=== PATIENT | male | born 1970 | race Caucasian/White ===

== ENCOUNTER 2017-02-28 17:27 | Emergency (ER) | payer BC ==
[~2017-02-28 17:27] MED LIST: NEXIUM
[2017-02-28 17:30] VITALS: TEMP 36.4
[2017-02-28 18:33] LABS: BASO % 0.3 %; BASO ABS # 0.02 K/uL (0-0.2); COMPLETE YES; EOS % 1.1 %; HEMATOCRIT 48.7 % (42-52); IG% 0.1 %; LYMPH % 28.1 %; MEAN CELL VOLUME 89.9 fL (80-100); MEAN CORPUSCULAR HEMOGLOBIN 30.8 pg (25-34); MEAN CORPUSCULAR HGB CONC 34.3 g/dl (32-36); MEAN PLATELET VOLUME 10.4 fL (7.4-10.4); MONO % 4.2 %; NEUT % 66.2 %; PLATELET COUNT 182 K/uL (130-400); RED BLOOD COUNT 5.42 M/uL (4.7-6.1); WHITE BLOOD COUNT 7.84 K/uL (4.8-10.8)
[2017-02-28] MEDS ORDERED: SODIUM CHLORIDE 0.9% 1000ML 1,000 ML IV STA (18:33)
[2017-02-28] MEDS ORDERED: KETOROLAC TROMETHAMINE 30 MG/ML VIAL IV STA (18:33)
--- NOTE | 2017-02-28 18:51 | DIAGNOSTIC IMAGING REPORT ---
CHEST ONE VIEW PORTABLE HISTORY: Atypical Chest Pain COMPARISON: None. FINDINGS: The lungs are clear. Cardiac silhouette is normal in size. No pleural effusions. No pneumothorax. IMPRESSION: No acute process. Electronically signed by: Scooter Qureshi M.D. 02/28/2017 6:49 PM Dictated Date/Time: 02/28/2017 6:48 PM
[2017-02-28 18:55] LABS: BLOOD UREA NITROGEN 13 mg/dl (7-18); BUN/CREATININE RATIO 13.3 (10-20); CARBON DIOXIDE 32 mmol/L (21-32); CHLORIDE 105 mmol/L (98-107); CREATININE 0.98 mg/dl (0.60-1.40); GLUCOSE 115 mg/dl (70-99); SODIUM 141 mmol/L (136-145)
[2017-02-28 18:56] LABS: CKMB/CK RATIO 0.9 (0-3.0)
[2017-02-28 20:49] VITALS: BP 151/90; PULSE 70; O2SAT 99
--- NOTE | 2017-03-01 00:11 | EMERGENCY ROOM VISIT NOTE ---
History Report prepared by Rocío: Ian Moses Under the Supervision of: Dr. Haroon Mancera D.O. First contact with patient: 17:50 Chief Complaint: CHEST PAIN Stated Complaint: PAINS IN THE CHEST AND NECK History of Present Illness The patient is a 46 year old male who presents to the Emergency Room with complaints of constant left sided neck pain that the patient has been experiencing for the past 2-3 weeks. The patient states that the discomfort in his neck is worsened with range of motion of the neck and strenuous activity. One week ago the patient also started to experience some waxing and waning left sided chest pain. This pain is also worsened with strenuous activity. He does think that it worsens when he turns his head as well. The patient denies any shortness of breath, diaphoresis, or nausea. He does not have any personal history of cardiac disease, hypertension, or hyperlipemia, but does have a family history of cardiac illness. He denies headache, change in vision, fevers , diarrhea, pain with urination, and melena. Patient denies any swelling of his calves, recent trips, recent surgeries, hemoptysis, history of cancer or smoking, and no blood clots Source of History: patient Onset: 2-3 weeks NO EXPERIENCE Position: neck, chest (left) Timing: constant Modifying Factors (Worsening): exertion Associated Symptoms: No SOB, No diaphoresis Review of Systems See HPI for pertinent positives & negatives. A total of 10 systems reviewed and were otherwise negative. Past Medical & Surgical NO significant history. Family History FH: heart disease Social History Smoking Status: Never Smoker Marital Status: Housing Status: lives with family Occupation Status: employed Current/Historical Medications No Active Prescriptions or Reported Meds Allergies Coded Allergies: No Known Allergies (Unverified , 02/28/17) Physical Exam Vital Signs Date Time Temp Pulse Resp B/P Pulse Ox O2 Delivery O2 Flow Rate FiO2 02/28/17 20:49 70 18 151/90 99 02/28/17 18:59 68 18 167/98 97 02/28/17 18:23 62 02/28/17 17:45 97 Room Air 02/28/17 17:30 36.4 62 20 140/84 97 Room Air Physical Exam GENERAL: Standing in room. alert, well appearing, well nourished, no distress, non-toxic EYE EXAM: normal conjunctiva OROPHARYNX: no exudate, no erythema, lips, buccal mucosa, and tongue normal and mucous membranes are moist NECK: supple, no nuchal rigidity, no adenopathy. There is reproducible discomfort with turning of the neck to the left beyond 45 degrees and upon palpation. The pain is in the upper cervical area tracking down into the upper trapezius. LUNGS: Clear to auscultation. Normal chest wall mechanics CHEST: Questionable reproducible tenderness along the left chest wall. HEART: no murmurs, S1 normal and S2 normal ABDOMEN: abdomen soft, non-tender, normo-active bowel sounds, no masses, no rebound or guarding. BACK: Back is symmetrical on inspection and there is no deformity, no midline tenderness, no CVA tenderness. SKIN: no rashes and no bruising UPPER EXTREMITIES: upper extremities are grossly normal. Radial pulses are equal bilateral LOWER EXTREMITIES: No pitting edema. NEURO EXAM: Normal sensorium, cranial nerves II-XII grossly intact, normal speech, no gross weakness of arms, no gross weakness of legs. Medical Decision & Procedures ER Provider Diagnostic Interpretation: Radiology results as stated below per my review and the radiologist's interpretation: CHEST ONE VIEW PORTABLE HISTORY: Atypical Chest Pain COMPARISON: None. FINDINGS: The lungs are clear. Cardiac silhouette is normal in size. No pleural effusions. No pneumothorax. IMPRESSION: No acute process. Electronically signed by: Scooter Qureshi M.D. 02/28/2017 6:49 PM Dictated Date/Time: 02/28/2017 6:48 PM Laboratory Results 02/28/17 18:20 Red Blood Count 5.42, Mean Corpuscular Volume 89.9, Mean Corpuscular Hemoglobin 30.8, Mean Corpuscular Hemoglobin Concent 34.3, Mean Platelet Volume 10.4, Neutrophils (%) (Auto) 66.2, Lymphocytes (%) (Auto) 28.1, Monocytes (%) (Auto) 4.2, Eosinophils (%) (Auto) 1.1, Basophils (%) (Auto) 0.3, Neutrophils # (Auto) 5.19, Lymphocytes # (Auto) 2.20, Monocytes # (Auto) 0.33, Eosinophils # (Auto) 0.09, Basophils # (Auto) 0.02 02/28/17 18:20 Test 02/28/17 18:20 02/28/17 20:22 White Blood Count 7.84 K/uL (4.8-10.8) Red Blood Count 5.42 M/uL (4.7-6.1) Hemoglobin 16.7 g/dL (14.0-18.0) Hematocrit 48.7 % (42-52) Mean Corpuscular Volume 89.9 fL (80-100) Mean Corpuscular Hemoglobin 30.8 pg (25-34) Mean Corpuscular Hemoglobin Concent 34.3 g/dl (32-36) Platelet Count 182 K/uL (130-400) Mean Platelet Volume 10.4 fL (7.4-10.4) Neutrophils (%) (Auto) 66.2 % Lymphocytes (%) (Auto) 28.1 % Monocytes (%) (Auto) 4.2 % Eosinophils (%) (Auto) 1.1 % Basophils (%) (Auto) 0.3 % Neutrophils # (Auto) 5.19 K/uL (1.4-6.5) Lymphocytes # (Auto) 2.20 K/uL (1.2-3.4) Monocytes # (Auto) 0.33 K/uL (0.11-0.59) Eosinophils # (Auto) 0.09 K/uL (0-0.5) Basophils # (Auto) 0.02 K/uL (0-0.2) RDW Standard Deviation 48.9 fL (36.4-46.3) RDW Coefficient of Variation 14.6 % (11.5-14.5) Immature Granulocyte % (Auto) 0.1 % Immature Granulocyte # (Auto) 0.01 K/uL (0.00-0.02) Anion Gap 4.0 mmol/L (3-11) Estimated GFR () 107.5 Estimated GFR (Non- 92.7 BUN/Creatinine Ratio 13.3 (10-20) Calcium Level 9.0 mg/dl (8.5-10.1) Total Creatine Kinase 174 U/L (39-308) Creatine Kinase MB 1.5 ng/ml (0.5-3.6) Creatine Kinase MB Ratio 0.9 (0-3.0) Chemistry Specimen Hemolysis Troponin I < 0.015 ng/ml (0-0.045) Laboratory results per my review. Medications Administered Medications (Trade) Dose Ordered Sig/Tegan Route Start Time Stop Time Status Last Admin Dose Admin Sodium Chloride (Nss 1000ml) 1,000 ml @ 999 mls/hr Q1H1M STAT IV 02/28/17 18:33 02/28/17 19:33 DC 02/28/17 18:59 999 MLS/HR Ketorolac Tromethamine (Toradol Inj) 30 mg NOW STAT IV 02/28/17 18:33 02/28/17 18:34 DC 02/28/17 18:59 30 MG ECG Indication: chest pain Rate (beats per minute): 65 Rhythm: normal sinus Findings: peaked T-waves (V2), other (Normal Nettie) Comparison ECG Date: no prior available ED Course ED COURSE: Vital signs were reviewed and showed normal vitals. The patients medical record was reviewed. Patient had no previous visits to the emergency department. The above diagnostic studies were performed and reviewed. ED treatments and interventions as stated above. 1752: The patient was evaluated in room A3. A complete history and physical examination was performed. 1832: Ordered Toradol 30 mg IV, Sodium Chloride 1000 mL @ 999 mL/hr IV. 1934: I checked on the patient at this time. He is feeling much better. He is ready to go home, but is agreeable to stay for repeat troponin. His last pain was 3-4 hours ago. 1952: Upon reevaluation, the patient is feeling well.I discussed my findings with the patient and he understands and agrees with the treatment plan. Based on the patients age, coexisting illnesses, exam and lab findings the decision to treat as an outpatient was made. The patient remained stable while under my care. The patient appeared well at the time of discharge. Medical Decision Differential diagnoses includes but is not limited to acute coronary syndrome, myocardial infarction, pericarditis, pulmonary embolus, aortic dissection, pneumonia, pneumothorax, musculoskeletal, shingles, esophageal. Patient is a 46-year-old male who presents the ER for left-sided neck pain associated with left upper chest pain. The left neck pain has been present for the past 2-3 weeks and he notes it is worse with rotation or movement of his head. It's along the left paraspinal region. He denies any trauma. He is neurologically intact. No weakness or numbness of his arms or legs. Upon palpation it is reproducible and consequently I do believe it to be muscle skeletal. Troponin along with chest x-ray and EKG were unremarkable. He notes that the chest pain has been present for the past 2 days. He consistently. I did recommend a repeat troponin and he preferred to leave and I was able to talk him into obtaining it and calling him with the results if positive. He was eventually agreeable to this. He did leave prior to the results of the troponin. I explained to him with 2 negative troponins as presentation his risk for a cardiac event is less than 2% as he is a low risk per the heart score. Discussed with Pt concerning signs and symptoms to watch out for. Pt was instructed to follow up with their PCP and discussed with the patient their option to return to the ED at anytime for persistent or worsening symptoms. The appropriate anticipatory guidance and out-patient management, including indications for return to the emergency department, were explained at length to the patient and understood. Impression Primary Impression: Neck muscle strain Additional Impression: Precordial chest pain Scribe Attestation The scribe's documentation has been prepared under my direction and personally reviewed by me in its entirety. I confirm that the note above accurately reflects all work, treatment, procedures, and medical decision making performed by me. Departure Information Dispostion Home / Self-Care Prescriptions No Active Prescriptions or Reported Meds Referrals No Doctor, Assigned (PCP) Forms HOME CARE DOCUMENTATION FORM, IMPORTANT VISIT INFORMATION Patient Instructions [facility] Additional Instructions Please follow up with your primary care doctor with in the next 24 hours. Any worsening of your symptoms, please return to the ED immediately. This includes new or worsening chest pain, shortness of breath, passing out, weakness in arms or legs or any other concerning signs or symptoms from your standpoint. Please take Motrin or Tylenol as needed for pain. Problem Qualifiers Primary Impression: Neck muscle strain Encounter type: initial encounter Qualified Codes: S16.1XXA - Strain of muscle, fascia and tendon at neck level, initial encounter
== END 2017-02-28 20:50 | disposition home or self-care (01) ==
LOC: C.EDB 17:28 → C.EDA 20:50
DX: S16.1XXA Strain of muscle, fascia and tendon at neck level, initial encounter (principal); R07.2 Precordial pain; X58.XXXA Exposure to other specified factors, initial encounter; Z82.49 Family history of ischemic heart disease and other diseases of the circulatory system

== ENCOUNTER → 2018-01-12 | Outpatient (CLI) | payer OTHER | END | disposition home or self-care (01) | LOC: C.PATHSPEC 16:40 | PROVIDERS: ATTEND Urology | DX: N41.9 Inflammatory disease of prostate, unspecified (principal) ==

== ENCOUNTER → 2018-01-13 | Outpatient (CLI) | payer OTHER ==
[2018-01-13 12:20] LABS: HEMATOCRIT 48.6 % (42-52); HEMOGLOBIN 16.4 g/dL (14.0-18.0); MEAN CELL VOLUME 88.4 fL (80-100); MEAN CORPUSCULAR HEMOGLOBIN 29.8 pg (25-34); MEAN CORPUSCULAR HGB CONC 33.7 g/dl (32-36); MEAN PLATELET VOLUME 10.7 fL (7.4-10.4); PLATELET COUNT 197 K/uL (130-400); RED CELL DISTRIBUTION WIDTH CV 14.1 % (11.5-14.5)
[2018-01-13 13:29] LABS: BLOOD UREA NITROGEN 14 mg/dl (7-18); CALCIUM 9.2 mg/dl (8.5-10.1); CARBON DIOXIDE 29 mmol/L (21-32); CREATININE 1.08 mg/dl (0.60-1.40); GLUCOSE 101 mg/dl (70-99); POTASSIUM 3.9 mmol/L (3.5-5.1); SODIUM 137 mmol/L (136-145)
== END | disposition home or self-care (01) ==
LOC: C.LAB1850 10:42
PROVIDERS: ATTEND Urology
DX: N41.9 Inflammatory disease of prostate, unspecified (principal)

== ENCOUNTER → 2018-03-10 | Outpatient (CLI) | payer OTHER | END | disposition home or self-care (01) | LOC: C.LABSPEC 17:03 | PROVIDERS: ATTEND Urology | DX: N34.2 Other urethritis (principal) ==

== ENCOUNTER → 2018-03-14 | Outpatient (CLI) | payer OTHER | END | disposition home or self-care (01) | LOC: C.LAB1850 10:13 | PROVIDERS: ATTEND Urology | DX: N34.2 Other urethritis (principal) ==

== ENCOUNTER 2019-12-05 10:45 | Inpatient (IN) ==
[2019-12-05] MEDS ORDERED: KETOROLAC TROMETHAMINE 15 MG/ML VIAL IV STA ×2 (11:14→12:39)
[2019-12-05] MEDS ORDERED: SODIUM CHLORIDE 0.9% 1000ML 1,000 ML IV ONE (11:14)
[2019-12-05 12:05] LABS: Appearance Urine Clear (Clear); Bacteria Urine Automated Negative (Negative); Bilirubin Urine Negative (Negative); Blood Urine 2+ (Negative); Color Urine Yellow; Glucose Urine UA Negative (Negative); Ketones Urine Negative (Negative); Leukocyte Esterase Urine Negative (Negative); Nitrite Urine Negative (Negative); Protein Urine Negative (Negative); RBC Urine Automated >30 /hpf (0-4); Specific Gravity Urine 1.015 (1.000-1.030); Urobilinogen Urine Negative (Negative); pH Urine 8.5 (4.5-7.5)
[2019-12-05 12:06] LABS: Basophils # (auto) 0.01 K/uL (0-0.2); Basophils % (auto) 0.1 %; Eosinophils # (auto) 0.02 K/uL (0-0.5); Eosinophils % (auto) 0.1 %; Hematocrit (blood only) 50.6 % (42-52); Hemoglobin 17.2 g/dL (14.0-18.0); Immature Granulocytes # (auto) 0.03 K/uL (0.00-0.02); Immature Granulocytes % (auto) 0.2 %; Lymphocytes # (auto) 1.13 K/uL (1.2-3.4); Lymphocytes % (auto) 7.7 %; Mean Corpuscular Hemoglobin 30.5 pg (25-34); Mean Corpuscular Volume 89.7 fL (80-100); Mean Platelet Volume 10.8 fL (7.4-10.4); Monocytes % (auto) 2.7 %; Neutrophils # (auto) 13.17 K/uL (1.4-6.5); Neutrophils % (auto) 89.2 %; Platelet Count 181 K/uL (130-400); RDW Coefficient of Variation 14.3 % (11.5-14.5); RDW Standard Deviation 46.8 fL (36.4-46.3); Red Blood Count 5.64 M/uL (4.7-6.1); White Blood Count 14.76 K/uL (4.8-10.8)
[2019-12-05 12:18] LABS: Partial Thromboplastin Ratio 0.9; Partial Thromboplastin Time 25.5 Seconds (21.0-31.0); Prothrombin Time 10.5 Seconds (9.0-12.0)
[2019-12-05 12:20] LABS: Alanine Aminotransferase 57 U/L (12-78); Albumin Level 4.5 gm/dl (3.4-5.0); Aspartate Aminotransferase 30 U/L (15-37); BUN Creatinine Ratio 11.6 (10-20); Blood Urea Nitrogen 13 mg/dl (7-18); Calcium 9.6 mg/dl (8.5-10.1); Carbon Dioxide 28 mmol/L (21-32); Chloride 106 mmol/L (98-107); Creatinine Clr Calc Pharmacy 83.3 ml/min; Est GFR (African American) 86.7; Est GFR (Non-African American) 74.8; Glucose 109 mg/dl (70-99); Lipase 152 U/L (73-393); Potassium 4.5 mmol/L (3.5-5.1); Sodium 139 mmol/L (136-145)
[2019-12-05 12:22] LABS: Alkaline Phosphatase 106 U/L (45-117); Bilirubin Direct < 0.1 mg/dl (0-0.2); Bilirubin,Total 0.4 mg/dl (0.2-1); Total Protein 8.2 gm/dl (6.4-8.2)
[2019-12-05] MEDS ORDERED: IOVERSOL 100ml IV PRN (12:37)
--- NOTE | 2019-12-05 12:48 | CT Scan Report ---
CT OF THE ABDOMEN AND PELVIS WITH CONTRAST CLINICAL HISTORY: Left lower quadrant pain. Evaluate for acute diverticulitis. COMPARISON STUDY: CT of the abdomen and pelvis December 03, 2014. TECHNIQUE: Following IV administration of 95 mL of Optiray-320, axial images of the abdomen and pelvi s were obtained from the lung bases to the proximal femurs. Images were reviewed in the axial, sagitt al, and coronal planes. IV contrast was administered without complication. Automated exposure contro l was utilized for the study. A dose lowering technique was utilized adhering to the principles of A JENNIFER. CT DOSE: 375.41 mGy.cm FINDINGS: A 5 mm x 4 mm proximal left ureteral calculus results in mild hydronephrosis with moderate perinephric infiltration. There is a 2 mm calculus within the upper pole of the left kidney. Left nep hrogram is delayed. There are no right ureteral calculi. The liver, spleen, adrenal glands and pancre as are normal. There is no evidence for a bowel obstruction. This colonic diverticulosis without evid ence for acute diverticulitis. The appendix is normal. There is no lymphadenopathy. There are no susp icious osseous lesions. No biliary or pancreatic ductal dilatation is noted. IMPRESSION: 1. 5 mm x 4 mm proximal left ureteral calculus results in mild hydronephrosis with moderate perinephr ic infiltration. 2. 2 mm left renal calculus. 3. Mild colonic diverticulosis without evidence for acute diverticulitis. ACT 112: Negative or not required by law. Electronically signed by: Moise Savage M.D. 12/05/2019 12:46 PM
[2019-12-05] MEDS ORDERED: cefTRIAXone SODIUM 1,000 MG/50 ML BAG IV STA (13:36)
--- NOTE | 2019-12-05 15:07 | History & Physical Report ---
Date of Service December 05, 2019 Assessment & Plan (1) Ureteral calculi: 49yo male with no significant past medical/surgical history presenting with 5mm x 4mm proximal left ureteral calculus with mild hydronephrosis and perinephric infiltration. Patient afebrile, hemodynamically stable, non-toxic in appearance. UA does not suggest infection. -Admit to medical floor -IVF - LR at 125mL/hr x 2 liters -Toradol 15mg IV q 6 hours as needed for pain. Patient does not wish to receive narcotic pain medication -Tylenol as needed for pain -Zofran as needed for nausea -Ceftriaxone 1gm IV daily -Flomax 0.4mg po q daily -Strain all urine -Urology consultation appreciated -Will keep patient NPO after midnight for possible intervention in AM Present on Admission?: Yes (2) Elevated blood pressure reading: Patient with elevated blood pressure readings in setting of acute pain and distress. Voiced some concern over numbers. -Continue to monitor -Patient wishes to establish care with a PCP F/E/N - LR at 12mL/hr x 2 liters, electrolytes and renal function WNL, regular diet as tolerated, NPO after midnight Ppx - low risk for DVT Code - Full per discussion with patient Dispo - Admit to medical floor Present on Admission?: Yes History of Present Illness Chief Complaint: Left flank, lower abdominal pain Primary Care Provider: NO PCP Dangelo Ellsworth is a 49yo male with no significant past medical or surgical history. He developed left sided flank pain on 12/03/19 which was self-limiting, also passed some dark colored urine. He is uncertain if there was blood in the urine. Pain did not reoccur until this AM. When he woke up he was unable to get out of bed due to pain. Pain in LLQ and flank, severe, associated with some nausea. He denies fever/chills/back pain/dysuria. No additional complaints at this time. ER Course: Ceftriaxone, Toradol Allergies Allergy/AdvReac Type Severity Reaction Status Date / Time No Known Allergies Allergy Unverified 12/05/19 12:09 Home Medications Home Medications Medication Instructions Recorded Confirmed Type No Known Home Medications 12/05/19 12/05/19 History Past Med/Surg History Medical History (Updated 12/05/19 @ 15:00 by June Barrera DO) No significant past medical history Surgical History (Updated 12/05/19 @ 14:57 by June Barrera DO) History of tonsillectomy Family History (Updated 12/05/19 @ 14:57 by June Barrera DO) Other Heart disease Hypertension Social History (Updated 12/05/19 @ 14:57 by June Barrera DO) Preferred Language: German Communication Ability: Effective Boiler Attendant Required: No Beliefs That Will Affect Care: None Current Living Situation: Spouse Other Information That Helps Us Care for You: No Feels Safe at Home: Yes Safety Concerns: Feels Safe At This Time Smoking Status: Never smoker Hx Alcohol Use: Yes Hx Substance Use: No Review of Systems Review of Systems: All systems reviewed & are unremarkable except as noted in HPI & below Physical Exam Physical Exam: General: patient uncomfortable, NAD, non-toxic in appearance, AA&O x 4 Skin: warm, dry, intact, no rashes or lesions HEENT: NC/AT, PERRL, EOMI, anicteric sclera, conjunctiva without injection, external ear normal to inspection and nontender, nares patent, moist mucus membranes, dentition intact, no oropharyngeal lesions, neck supple, trachea midline, no LAD, no thyromegaly, no JVD Heart: +S1/S2, regular, no m/r/g Lungs: equal air entry bilaterally, no rales/rhonchi/wheezes Abd: +BS, soft, ND, tender in LLQ, no rebound/guarding/peritoneal signs, no masses/organomegaly/ascites Ext: warm, 2+ pulses in UE/LE bilaterally, no clubbing/cyanosis or edema Neuro: nonfocal, patient AA&O x 4, speech intact, no facial droop, moving all extremities on command with equal strength 5/5 Results & Data Vital Signs (Past 12 Hours) Vital Signs Temp Pulse Resp BP Pulse Ox 12/05/19 13:25 63 24 140/84 97 12/05/19 13:00 72 15 154/98 H 100 12/05/19 12:42 72 17 173/97 H 98 12/05/19 12:00 64 24 140/94 12/05/19 11:59 64 27 H 141/93 H 12/05/19 11:43 69 22 154/103 H 99 12/05/19 10:49 36.5 C 68 16 164/107 H 98 Laboratory Results Lab Results 12/05/19 12/05/19 12/05/19 Range/Units 11:33 11:45 11:45 WBC 14.76 H (4.8-10.8) K/uL RBC 5.64 (4.7-6.1) M/uL Hgb 17.2 (14.0-18.0) g/dL Hct 50.6 (42-52) % MCV 89.7 (80-100) fL MCH 30.5 (25-34) pg MCHC 34.0 (32-36) g/dL RDW Std Deviation 46.8 H (36.4-46.3) fL RDW Coeff of Stephen 14.3 (11.5-14.5) % Plt Count 181 (130-400) K/uL MPV 10.8 H (7.4-10.4) fL Immature Gran % (Auto) 0.2 % Neut % (Auto) 89.2 % Lymph % (Auto) 7.7 % Rowan % (Auto) 2.7 % Eos % (Auto) 0.1 % Baso % (Auto) 0.1 % Immature Gran # (Auto) 0.03 H (0.00-0.02) K/uL Neut # (Auto) 13.17 H (1.4-6.5) K/uL Lymph # (Auto) 1.13 L (1.2-3.4) K/uL Rowan # (Auto) 0.40 (0.11-0.59) K/uL Eos # (Auto) 0.02 (0-0.5) K/uL Baso # (Auto) 0.01 (0-0.2) K/uL PT (9.0-12.0) Seconds INR (0.9-1.1) APTT (21.0-31.0) Seconds PTT Ratio Sodium 139 (136-145) mmol/L Potassium 4.5 (3.5-5.1) mmol/L Chloride 106 (98-107) mmol/L Carbon Dioxide 28 (21-32) mmol/L Anion Gap 5.0 (3-11) BUN 13 (7-18) mg/dl Creatinine 1.15 (0.6-1.4) mg/dl Est Cr Clr Drug Dosing 83.3 ml/min Est GFR ( Amer) 86.7 Est GFR (Non-Af Amer) 74.8 BUN/Creatinine Ratio 11.6 (10-20) Glucose 109 H (70-99) mg/dl Calcium 9.6 (8.5-10.1) mg/dl Total Bilirubin 0.4 (0.2-1) mg/dl Direct Bilirubin < 0.1 (0-0.2) mg/dl AST 30 (15-37) U/L ALT 57 (12-78) U/L Alkaline Phosphatase 106 (45-117) U/L Total Protein 8.2 (6.4-8.2) gm/dl Albumin 4.5 (3.4-5.0) gm/dl Lipase 152 (73-393) U/L Urine Color Yellow Urine Appearance Clear (Clear) Urine pH 8.5 H (4.5-7.5) Ur Specific [place] 1.015 (1.000-1.030) Urine Protein Negative (Negative) Urine Glucose (UA) Negative (Negative) Urine Ketones Negative (Negative) Urine Blood 2+ H (Negative) Urine Nitrite Negative (Negative) Urine Bilirubin Negative (Negative) Urine Urobilinogen Negative (Negative) Ur Leukocyte Esterase Negative (Negative) Urine WBC (Auto) 1-5 (0-5) /hpf Urine RBC (Auto) >30 H (0-4) /hpf U Hyaline Cast (Auto) 1-5 (0-5) /lpf U Epithel Cells (Auto) 5-10 H (0-5) /lpf Urine Bacteria (Auto) Negative (Negative) 12/05/19 Range/Units 11:45 WBC (4.8-10.8) K/uL RBC (4.7-6.1) M/uL Hgb (14.0-18.0) g/dL Hct (42-52) % MCV (80-100) fL MCH (25-34) pg MCHC (32-36) g/dL RDW Std Deviation (36.4-46.3) fL RDW Coeff of Stephen (11.5-14.5) % Plt Count (130-400) K/uL MPV (7.4-10.4) fL Immature Gran % (Auto) % Neut % (Auto) % Lymph % (Auto) % Rowan % (Auto) % Eos % (Auto) % Baso % (Auto) % Immature Gran # (Auto) (0.00-0.02) K/uL Neut # (Auto) (1.4-6.5) K/uL Lymph # (Auto) (1.2-3.4) K/uL Rowan # (Auto) (0.11-0.59) K/uL Eos # (Auto) (0-0.5) K/uL Baso # (Auto) (0-0.2) K/uL PT 10.5 (9.0-12.0) Seconds INR 1.0 (0.9-1.1) APTT 25.5 (21.0-31.0) Seconds PTT Ratio 0.9 Sodium (136-145) mmol/L Potassium (3.5-5.1) mmol/L Chloride (98-107) mmol/L Carbon Dioxide (21-32) mmol/L Anion Gap (3-11) BUN (7-18) mg/dl Creatinine (0.6-1.4) mg/dl Est Cr Clr Drug Dosing ml/min Est GFR ( Amer) Est GFR (Non-Af Amer) BUN/Creatinine Ratio (10-20) Glucose (70-99) mg/dl Calcium (8.5-10.1) mg/dl Total Bilirubin (0.2-1) mg/dl Direct Bilirubin (0-0.2) mg/dl AST (15-37) U/L ALT (12-78) U/L Alkaline Phosphatase (45-117) U/L Total Protein (6.4-8.2) gm/dl Albumin (3.4-5.0) gm/dl Lipase (73-393) U/L Urine Color Urine Appearance (Clear) Urine pH (4.5-7.5) Ur Specific [place] (1.000-1.030) Urine Protein (Negative) Urine Glucose (UA) (Negative) Urine Ketones (Negative) Urine Blood (Negative) Urine Nitrite (Negative) Urine Bilirubin (Negative) Urine Urobilinogen (Negative) Ur Leukocyte Esterase (Negative) Urine WBC (Auto) (0-5) /hpf Urine RBC (Auto) (0-4) /hpf U Hyaline Cast (Auto) (0-5) /lpf U Epithel Cells (Auto) (0-5) /lpf Urine Bacteria (Auto) (Negative) Diagnostic Findings CT OF THE ABDOMEN AND PELVIS WITH CONTRAST CLINICAL HISTORY: Left lower quadrant pain. Evaluate for acute diverticulitis. COMPARISON STUDY: CT of the abdomen and pelvis December 03, 2014. TECHNIQUE: Following IV administration of 95 mL of Optiray-320, axial images of the abdomen and pelvis were obtained from the lung bases to the proximal femurs. Images were reviewed in the axial, sagittal, and coronal planes. IV contrast was administered without complication. Automated exposure control was utilized for the study. A dose lowering technique was utilized adhering to the principles of ALARA. CT DOSE: 375.41 mGy.cm FINDINGS: A 5 mm x 4 mm proximal left ureteral calculus results in mild hydronephrosis with moderate perinephric infiltration. There is a 2 mm calculus within the upper pole of the left kidney. Left nephrogram is delayed. There are no right ureteral calculi. The liver, spleen, adrenal glands and pancreas are normal. There is no evidence for a bowel obstruction. This colonic diverticulosis without evidence for acute diverticulitis. The appendix is normal. There is no lymphadenopathy. There are no suspicious osseous lesions. No biliary or pancreatic ductal dilatation is noted. IMPRESSION: 1. 5 mm x 4 mm proximal left ureteral calculus results in mild hydronephrosis with moderate perinephric infiltration. 2. 2 mm left renal calculus. 3. Mild colonic diverticulosis without evidence for acute diverticulitis. ACT 112: Negative or not required by law. Electronically signed by: Moise Savage M.D. 12/05/2019 12:46 PM Dictated: 12/05/19 1242 Transcribed: 12/05/19 1242 Code Status & VTE Plan Code Status FULL VTE Prophylaxis Plan VTE Prophylaxis will be ordered: No Reason for no VTE drug order: Treatment not indicated Reason for no VTE mechanical prophylaxis: Treatment not indicated PG Care Time/CCT Total # of Minutes Spent Total Time Spent with Patient: Total time spent is greater than 50% in coordination of care (as documented) at patient's floor/unit and/or counseling patient: Coding Level of Care Code 93030 Initial Inpt Care Lvl 2 Diagnoses Ureteral calculi N20.1 Elevated blood pressure reading R03.0
[2019-12-05] MEDS ORDERED: DOCUSATE SODIUM 100 MG CAP PO PRN (15:41)
[2019-12-05] MEDS ORDERED: ACETAMINOPHEN 325 MG TAB PO PRN (15:41)
[2019-12-05] MEDS ORDERED: POLYETHYLENE (MIRALAX) 17 GM PACK PO PRN (15:41)
[2019-12-05] MEDS ORDERED: ONDANSETRON INJ 2 MG/ML 2 ML VIAL IV PRN (15:41)
[2019-12-05] MEDS ORDERED: KETOROLAC TROMETHAMINE 15 MG/ML VIAL IV PRN (15:41)
[2019-12-05] MEDS: LACTATED RINGER'S 1,000 ML IV SCH (16:58)
--- NOTE | 2019-12-05 18:23 | Emergency Department Note ---
Entered by Linda Weber acting as a scribe for Rojelio Alvarado History of Present Illness General Chief complaint: Abdominal Pain Stated complaint: SHARP PAINS IN LEFT SIDE OF BELLY Time Seen by Provider: 12/05/19 10:58 Source: patient History of Present Illness Onset (ago): hour(s) (2.5) Location: abdomen Severity: similar to prior episodes Pain Consistency: + constant Maximum Pain Intensity: 9 Associated symptoms: + denies other symptoms (difficulty passing gas, difficulty moving his bowels, hematochezia, hematuria, dysuria) and + nausea/vomiting (Positive nausea. Negative vomiting. ); no fever/chills (fever) The patient is a 49 year old male who presents to the Emergency Room with complaints of constant abdominal pain starting 2.5 hours ago. The patient states that 2 days ago he had left lower abdominal that went away quickly, so he didnt think much of it. He states that today he then started having the same pain. He reports that it wont go away and is concerned now. The patient complains of nausea. He notes that he last moved his bowels yesterday. The patient notes that he had dark urine a few days ago, but it has since dissipated. The patient denies vomiting, fever, difficulty passing gas, difficulty moving his bowels, hematochezia, hematuria, dysuria, recent strenuous activity, and recent diet changes. Home Medications Home Medications Medication Instructions Recorded Confirmed Type No Known Home Medications 12/05/19 12/05/19 History Allergies Allergy/AdvReac Type Severity Reaction Status Date / Time No Known Allergies Allergy Unverified 12/05/19 12:09 Past Med/Surg History Medical History No significant past medical history Surgical History History of tonsillectomy Family History Other Heart disease Hypertension Social History Preferred Language: Lithuanian Communication Ability: Effective Bilingual Call Center Representative Required: No Beliefs That Will Affect Care: None Current Living Situation: Spouse Feels Safe at Home: Yes Smoking Status: Never smoker Hx Alcohol Use: Yes Hx Substance Use: No Review of Systems See HPI for pertinent positives & negatives. and A total of 10 systems reviewed and were otherwise negative Physical Exam Vital Signs Vital Signs - 24 hr 12/05/19 10:49 12/05/19 11:43 12/05/19 11:59 Temperature 36.5 C Temperature Source Oral Pulse Rate 68 69 64 Pulse Rate from SpO2 Sensor 69 Respiratory Rate 16 22 27 H Blood Pressure 164/107 H 154/103 H 141/93 H Blood Pressure Mean 126 121 105 Pulse Oximetry 98 99 Oxygen Delivery Method Room Air Sepsis Recent Fever Within 48 Hours No Sepsis New/Unexplained Change in Mental Status No Sepsis Action Taken by Nursing No Action Required 12/05/19 12:00 12/05/19 12:42 12/05/19 13:00 Temperature Temperature Source Pulse Rate 64 72 72 Pulse Rate from SpO2 Sensor 72 Respiratory Rate 24 17 15 Blood Pressure 140/94 173/97 H 154/98 H Blood Pressure Mean 115 127 105 Pulse Oximetry 98 100 Oxygen Delivery Method Sepsis Recent Fever Within 48 Hours Sepsis New/Unexplained Change in Mental Status Sepsis Action Taken by Nursing 12/05/19 13:25 12/05/19 13:30 12/05/19 14:00 Temperature Temperature Source Pulse Rate 63 64 76 Pulse Rate from SpO2 Sensor 62 63 Respiratory Rate 24 22 16 Blood Pressure 140/84 150/90 H 169/104 H Blood Pressure Mean 94 114 110 Pulse Oximetry 97 96 Oxygen Delivery Method Sepsis Recent Fever Within 48 Hours Sepsis New/Unexplained Change in Mental Status Sepsis Action Taken by Nursing 12/05/19 14:30 Temperature Temperature Source Pulse Rate 70 Pulse Rate from SpO2 Sensor Respiratory Rate 12 Blood Pressure 142/97 H Blood Pressure Mean 101 Pulse Oximetry Oxygen Delivery Method Sepsis Recent Fever Within 48 Hours Sepsis New/Unexplained Change in Mental Status Sepsis Action Taken by Nursing GENERAL: He is oriented to person, place, and time. He appears well-developed and well-nourished. He does not appear distressed. HENT: Exam performed. - Head: Normocephalic and atraumatic. - Right Ear: External ear normal. No mastoid tenderness. - Left Ear: External ear normal. No mastoid tenderness. - Mouth/Throat: The oropharynx is clear and moist. No trismus in the jaw. No dental abscesses or uvula swelling. No oropharyngeal exudate or tonsillar abscesses. EYES: Conjunctivae and EOM are normal. Pupils are equal, round, and reactive to light. Right eye exhibits no discharge. Left eye exhibits no discharge. No scleral icterus. NECK: Normal range of motion. Neck supple. No JVD present. No spinous process tenderness present. No carotid bruit present. No rigidity. No tracheal deviation and normal range of motion present. No Brudzinski's sign and no Kernig's sign noted. CV: Normal rate, regular rhythm, normal heart sounds and intact distal pulses. There is no peripheral edema. Palpable radial pulses bue. PULM/CHEST: Effort normal and breath sounds normal. No respiratory distress. No stridor. He has no wheezes. He has no rales. - Chest Wall: He exhibits no tenderness. ABD: The abdomen is soft. Bowel sounds are normal. He has no distension. No mass is present. There is left lower quadrant pain. There is no rebound, no guarding, no Coffey's sign and no tenderness at McBurney's point. Rovsig negative. MUSC/SKEL: Normal range of motion. There is no peripheral edema, tenderness or deformity. LYMPH: No cervical adenopathy. NEURO: He is alert and oriented to person, place, and time. He has normal strength. No cranial nerve deficit or sensory deficit. Coordination and gait normal. GCS eye subscore is 4. GCS verbal subscore is 5. GCS motor subscore is 6. Cerebellar tests wnl. SKIN: Skin is warm and dry. He is not diaphoretic. PSYCH: He has a normal mood and affect. Behavior is normal. Judgment and thought content normal. Course Course 1101: The patient was evaluated in room C10. A complete history and physical exam was performed. 1323: Vital signs stable. The patient is having increasing pain. The labs are within normal limits with the exception of a white count 14.7. His urinalysis is negative for bacteria. His CT shows a 4x5 mm kidney stone with catalina-nephrical infiltration. The patient states that he is having too much pain and has required multiple doses of pain medications. He will be admitted for a urology consultation and possible stent placement. We paged urology at this time. 1337: Vital signs stable. I discussed the patient's case with TODD Miner- Urologiraida. She agrees that her service will be on consult. She recommends we give the patient 1 g Rocephin in the emergency department. I discussed the patient's case with Dr. Zaid HERNANDEZ Hospitalist. She will evaluate the patient for further management. Administered Medications Lactated Ringer's (Lr) 1,000 mls @ 125 mls/hr IV .Q8H VILMA Stop: 12/06/19 07:40 Last Admin: 12/05/19 16:58 Dose: 125 mls/hr Documented by: [id number] Ioversol (Optiray 320 100ml) 95 ml IV ONCE PRN PRN Reason: Interaction Checking Stop: 12/09/19 12:36 Last Admin: 12/05/19 12:38 Dose: 95 ml Documented by: [id number] Discontinued Medications Sodium Chloride (Nss 1000ml) 1,000 mls @ 999 mls/hr IV .Q1H1M ONE Stop: 12/05/19 12:14 Last Infusion: 12/05/19 12:54 Dose: 0 mls/hr Documented by: [id number] Admin: 12/05/19 11:56 Dose: 999 mls/hr Documented by: [id number] Ceftriaxone Sodium (Rocephin) 1,000 mg in 50 mls @ 100 mls/hr IV NOW STA Stop: 12/05/19 14:05 Last Infusion: 12/05/19 14:36 Dose: 0 mls/hr Documented by: [id number] Admin: 12/05/19 13:54 Dose: 100 mls/hr Documented by: [id number] Ketorolac Tromethamine (Toradol) 15 mg IV NOW STA Stop: 12/05/19 11:15 Last Admin: 12/05/19 11:54 Dose: 15 mg Documented by: [id number] Ketorolac Tromethamine (Toradol) 15 mg IV NOW STA Stop: 12/05/19 12:40 Last Admin: 12/05/19 12:42 Dose: 15 mg Documented by: [id number] Medical Decision Making Medical Records Attestation: I reviewed the patient's medical records. Home Medications Current Medication List: was personally reviewed by me Laboratory Data Attestation: I reviewed the patient's lab results. Result diagrams: 12/05/19 11:45 12/05/19 11:45 Lab Results 12/05/19 12/05/19 12/05/19 Range/Units 11:33 11:45 11:45 WBC 14.76 H (4.8-10.8) K/uL RBC 5.64 (4.7-6.1) M/uL Hgb 17.2 (14.0-18.0) g/dL Hct 50.6 (42-52) % MCV 89.7 (80-100) fL MCH 30.5 (25-34) pg MCHC 34.0 (32-36) g/dL RDW Std Deviation 46.8 H (36.4-46.3) fL RDW Coeff of Stephen 14.3 (11.5-14.5) % Plt Count 181 (130-400) K/uL MPV 10.8 H (7.4-10.4) fL Immature Gran % (Auto) 0.2 % Neut % (Auto) 89.2 % Lymph % (Auto) 7.7 % [place] % (Auto) 2.7 % Eos % (Auto) 0.1 % Baso % (Auto) 0.1 % Immature Gran # (Auto) 0.03 H (0.00-0.02) K/uL Neut # (Auto) 13.17 H (1.4-6.5) K/uL Lymph # (Auto) 1.13 L (1.2-3.4) K/uL [place] # (Auto) 0.40 (0.11-0.59) K/uL Eos # (Auto) 0.02 (0-0.5) K/uL Baso # (Auto) 0.01 (0-0.2) K/uL PT (9.0-12.0) Seconds INR (0.9-1.1) APTT (21.0-31.0) Seconds PTT Ratio Sodium 139 (136-145) mmol/L Potassium 4.5 (3.5-5.1) mmol/L Chloride 106 (98-107) mmol/L Carbon Dioxide 28 (21-32) mmol/L Anion Gap 5.0 (3-11) BUN 13 (7-18) mg/dl Creatinine 1.15 (0.6-1.4) mg/dl Est Cr Clr Drug Dosing 83.3 ml/min Est GFR ( Amer) 86.7 Est GFR (Non-Af Amer) 74.8 BUN/Creatinine Ratio 11.6 (10-20) Glucose 109 H (70-99) mg/dl Calcium 9.6 (8.5-10.1) mg/dl Total Bilirubin 0.4 (0.2-1) mg/dl Direct Bilirubin < 0.1 (0-0.2) mg/dl AST 30 (15-37) U/L ALT 57 (12-78) U/L Alkaline Phosphatase 106 (45-117) U/L Total Protein 8.2 (6.4-8.2) gm/dl Albumin 4.5 (3.4-5.0) gm/dl Lipase 152 (73-393) U/L Urine Color Yellow Urine Appearance Clear (Clear) Urine pH 8.5 H (4.5-7.5) Ur Specific [place] 1.015 (1.000-1.030) Urine Protein Negative (Negative) Urine Glucose (UA) Negative (Negative) Urine Ketones Negative (Negative) Urine Blood 2+ H (Negative) Urine Nitrite Negative (Negative) Urine Bilirubin Negative (Negative) Urine Urobilinogen Negative (Negative) Ur Leukocyte Esterase Negative (Negative) Urine WBC (Auto) 1-5 (0-5) /hpf Urine RBC (Auto) >30 H (0-4) /hpf U Hyaline Cast (Auto) 1-5 (0-5) /lpf U Epithel Cells (Auto) 5-10 H (0-5) /lpf Urine Bacteria (Auto) Negative (Negative) 12/05/19 Range/Units 11:45 WBC (4.8-10.8) K/uL RBC (4.7-6.1) M/uL Hgb (14.0-18.0) g/dL Hct (42-52) % MCV (80-100) fL MCH (25-34) pg MCHC (32-36) g/dL RDW Std Deviation (36.4-46.3) fL RDW Coeff of Stephen (11.5-14.5) % Plt Count (130-400) K/uL MPV (7.4-10.4) fL Immature Gran % (Auto) % Neut % (Auto) % Lymph % (Auto) % [place] % (Auto) % Eos % (Auto) % Baso % (Auto) % Immature Gran # (Auto) (0.00-0.02) K/uL Neut # (Auto) (1.4-6.5) K/uL Lymph # (Auto) (1.2-3.4) K/uL [place] # (Auto) (0.11-0.59) K/uL Eos # (Auto) (0-0.5) K/uL Baso # (Auto) (0-0.2) K/uL PT 10.5 (9.0-12.0) Seconds INR 1.0 (0.9-1.1) APTT 25.5 (21.0-31.0) Seconds PTT Ratio 0.9 Sodium (136-145) mmol/L Potassium (3.5-5.1) mmol/L Chloride (98-107) mmol/L Carbon Dioxide (21-32) mmol/L Anion Gap (3-11) BUN (7-18) mg/dl Creatinine (0.6-1.4) mg/dl Est Cr Clr Drug Dosing ml/min Est GFR ( Amer) Est GFR (Non-Af Amer) BUN/Creatinine Ratio (10-20) Glucose (70-99) mg/dl Calcium (8.5-10.1) mg/dl Total Bilirubin (0.2-1) mg/dl Direct Bilirubin (0-0.2) mg/dl AST (15-37) U/L ALT (12-78) U/L Alkaline Phosphatase (45-117) U/L Total Protein (6.4-8.2) gm/dl Albumin (3.4-5.0) gm/dl Lipase (73-393) U/L Urine Color Urine Appearance (Clear) Urine pH (4.5-7.5) Ur Specific [place] (1.000-1.030) Urine Protein (Negative) Urine Glucose (UA) (Negative) Urine Ketones (Negative) Urine Blood (Negative) Urine Nitrite (Negative) Urine Bilirubin (Negative) Urine Urobilinogen (Negative) Ur Leukocyte Esterase (Negative) Urine WBC (Auto) (0-5) /hpf Urine RBC (Auto) (0-4) /hpf U Hyaline Cast (Auto) (0-5) /lpf U Epithel Cells (Auto) (0-5) /lpf Urine Bacteria (Auto) (Negative) Imaging Data Radiologist's Impression: Radiology results as stated below per my review and the radiologist's interpretation: CT OF THE ABDOMEN AND PELVIS WITH CONTRAST CLINICAL HISTORY: Left lower quadrant pain. Evaluate for acute diverticulitis. COMPARISON STUDY: CT of the abdomen and pelvis December 03, 2014. TECHNIQUE: Following IV administration of 95 mL of Optiray-320, axial images of the abdomen and pelvis were obtained from the lung bases to the proximal femurs. Images were reviewed in the axial, sagittal, and coronal planes. IV contrast was administered without complication. Automated exposure control was utilized for the study. A dose lowering technique was utilized adhering to the principles of ALARA. CT DOSE: 375.41 mGy.cm FINDINGS: A 5 mm x 4 mm proximal left ureteral calculus results in mild hydronephrosis with moderate perinephric infiltration. There is a 2 mm calculus within the upper pole of the left kidney. Left nephrogram is delayed. There are no right ureteral calculi. The liver, spleen, adrenal glands and pancreas are normal. There is no evidence for a bowel obstruction. This colonic diverticulo sis without evidence for acute diverticulitis. The appendix is normal. There is no lymphadenopathy. There are no suspicious osseous lesions. No biliary or pancreatic ductal dilatation is noted. IMPRESSION: 1. 5 mm x 4 mm proximal left ureteral calculus results in mild hydronephrosis with moderate perinephric infiltration. 2. 2 mm left renal calculus. 3. Mild colonic diverticulosis without evidence for acute diverticulitis. ACT 112: Negative or not required by law. Electronically signed by: Moise Savage M.D. 12/05/2019 12:46 PM Blood Pressure Blood Pressure Findings: Elevated blood pressure Blood Pressure Disposition: further management by hospitalist KLEBER Narrative 1101: The patient was evaluated in room C10. A complete history and physical exa m was performed. 1323: Vital signs stable. The patient is having increasing pain. The labs are within normal limits with the exception of a white count 14.7. His urinalysis is negative for bacteria. His CT shows a 4x5 mm kidney stone with catalina-nephrical infiltration. The patient states that he is having too much pain and has required multiple doses of pain medications. He will be admitted for a urology consultation and possible stent placement. We paged urology at this time. 1337: Vital signs stable. I discussed the patient's case with TODD Miner- Urology. She agrees that her service will be on consult. She recommends we give the patient 1 g Rocephin in the emergency department. I discussed the patient's case with Dr. Barrera- [facility] Hospitalist. She will evaluate the patient for further management. Impression & Plan Kidney stone Discharge Plan Visit Data *Final* Discharge Date/Time: 12/05/19 15:23 Chief Complaint: Abdominal Pain Stated Complaint: SHARP PAINS IN LEFT SIDE OF BELLY ED Provider: Rojelio Alvarado Discharge Problem: Kidney stone Patient Disposition: Admitted As Inpatient Discharge Instructions Interventions: ED Discharge Assessment Last Done: 12/05/19 15:23 The scribe's documentation has been prepared under my direction and personally reviewed by me in its entirety. I confirm that the note above accurately reflects all work, treatment, procedures, and medical decision making performed by me.
[2019-12-05] MEDS ORDERED: TAMSULOSIN HCL 0.4 MG CAP PO SCH (21:00)
[2019-12-06] MEDS: LACTATED RINGER'S 1,000 ML IV SCH (00:52)
[2019-12-06 06:16] LABS: Basophils # (auto) 0.01 K/uL (0-0.2); Basophils % (auto) 0.1 %; Eosinophils # (auto) 0.04 K/uL (0-0.5); Eosinophils % (auto) 0.3 %; Hematocrit (blood only) 47.2 % (42-52); Immature Granulocytes # (auto) 0.02 K/uL (0.00-0.02); Immature Granulocytes % (auto) 0.2 %; Lymphocytes # (auto) 1.98 K/uL (1.2-3.4); Lymphocytes % (auto) 16.3 %; Mean Corpuscular Hemoglobin 30.2 pg (25-34); Mean Corpuscular Hgb Conc 33.9 g/dL (32-36); Mean Corpuscular Volume 89.2 fL (80-100); Mean Platelet Volume 11.2 fL (7.4-10.4); Monocytes # (auto) 0.78 K/uL (0.11-0.59); Monocytes % (auto) 6.4 %; Neutrophils # (auto) 9.31 K/uL (1.4-6.5); Neutrophils % (auto) 76.7 %; Platelet Count 183 K/uL (130-400); RDW Coefficient of Variation 14.5 % (11.5-14.5); RDW Standard Deviation 47.3 fL (36.4-46.3); Red Blood Count 5.29 M/uL (4.7-6.1); White Blood Count 12.14 K/uL (4.8-10.8)
[2019-12-06 06:47] LABS: BUN Creatinine Ratio 10.5 (10-20); Creatinine Clr Calc Pharmacy 99.8 ml/min; Est GFR (African American) 107.9; Est GFR (Non-African American) 93.1; Potassium 3.7 mmol/L (3.5-5.1)
--- NOTE | 2019-12-06 06:53 | Consultation Report ---
DATE OF CONSULTATION: 12/05/2019 REASON FOR THE CONSULT: Left ureteral stone. HISTORY OF PRESENTATION: The patient is a 49-year-old male with no previous history of stone disease, previously seen by urology for testicular discomfort but no current complaints of this. The patient developed flank pain earlier today, presented with severe flank pain to the Emergency Room, had a CAT scan that showed a 5 x 4 proximal left ureteral calculus with a second smaller calculus as well. The patient was admitted for pain control. He has past medical history is essentially negative. He does have a history of tonsillectomy. No family history of diabetes or coronary artery disease, hypertension, does not have a history of smoking, does not take any medications, has had no known drug allergies. He was started on Toradol as well as ceftriaxone. Urinalysis was negative for bacteria, but did show 1-5 white cells. White blood cell count is somewhat elevated at 14.76, creatinine was 1.15. PHYSICAL EXAMINATION: GENERAL: The patient is a well-developed male with mild distress. HEENT: Unremarkable. Respiratory, he appeared to have no respiratory distress. CARDIOVASCULAR: No pedal edema. ABDOMEN: Stomach was soft and nontender. He did have left flank pain to percussion. GENITOURINARY: Deferred. EXTREMITIES: Unremarkable. NEUROLOGIC: He was alert and oriented without any focal sensory deficits. SKIN: Dry, without any obvious rash or erythema and no palpable cervical adenopathy was felt. LABORATORY DATA: CT scan showed a proximal 5 x 4 mm stone. A 2 mm calculus within the left kidney. There was delayed left nephrogram. Colonic diverticulosis noted, otherwise normal. ASSESSMENT: Proximal left ureteral stone, spent 30 minutes reviewing options with the patient and the pathophysiology of kidney stones. Discussed options including trial of passage ESWL as well as ureteroscopy and the risks and the benefits of each of these procedures. PLAN: Making the patient n.p.o. after midnight and checking KUB in the morning and discussing further whether the patient wishes to proceed to ureteroscopy, stent placement or possible discharge for ESWL on Wednesday.
--- NOTE | 2019-12-06 08:12 | XRay Report ---
KUB HISTORY: Follow up study in a patient with left ureteral calculus left stone COMPARISON: CT abdomen pelvis 12/05/2019 FINDINGS: The bowel gas pattern is non-obstructive. There is no organomegaly. Renal shadows are part ially obscured by bowel gas. Previously noted right nephrolithiasis not identified. Left nephrolithia sis redemonstrated. The previously noted 4 mm left ureteral calculus the level of L4-L5 appears to minor ve migrated distally, now within the left hemipelvis and likely within the region of the ureterovesic ular junction. No pneumoperitoneum or pneumatosis. No fracture. IMPRESSION: 1. Distal migration of the 4 mm left ureteral calculus, now within the region of the ureterovesicular junction. 2. Left nephrolithiasis redemonstrated. ACT 112: Negative or not required by law. The above report was generated using voice recognition software. It may contain grammatical, syntax o r spelling errors. Electronically signed by: Tai Martinez M.D. 12/06/2019 8:11 AM
[2019-12-06] MEDS ORDERED: cefTRIAXone SODIUM 2,000 MG in DEXTROSE 5% 50 ML IV SCH (09:00)
--- NOTE | 2019-12-06 11:35 | Urology Progress Note ---
Date of Service December 06, 2019 Assessment & Plan (1) Ureteral calculi: 49 yo M admitted for left renal colic and hydronephrosis secondary to 4 mm left ureteral stone. Doing well this morning, pain improved No intervention planned today Stone well visualized on KUB Reviewed KUB with patient and discussed treatment options including MET vs URS vs ESWL Patient would like to proceed with scheduling ESWL Discontinued Toradol Recommend continue hydration, Tamsulosin, and pain control Will arrange f/u with our service as outpatient to schedule ESWL. Ordered EKG and CXR while inpatient to be done prior to discharge. Please have patient report to [facility] [facility] for H&P and paperwork directly after discharge. Thank you for allowing us to participate in the acute care of Mr. Ellsworth. Please reconsult us with additional questions, concerns or changes in patient status. Subjective 49 yo M admitted for left renal colic and hydronephrosis secondary to 4 mm left ureteral stone. Awake, lying in bed. Reports he had difficulty sleeping last night due to discomfort, but states pain is improved this morning. Has been utilizing PO Toradol as needed. No f/c/n/v. Reports urinary frequency. Denies hematuria or dysuria. KUB 12/06/19 reviewed and demonstrated distal migration of 4mm left ureteral stone to the level of the UVJ. Creatinine 0.96. WBC 12.14. Review of Systems Constitutional: as per Subjective / HPI Gastrointestinal: as per Subjective / HPI Genitourinary: + as per Subjective / HPI Physical Exam Constitutional: well developed and well nourished; no acute distress and not ill appearing Respiratory: normal respiratory effort; no respiratory distress Cardiovascular: Extremities: no pedal edema Gastrointestinal (Abdomen): Inspection/Auscultation: abdomen normal to inspection; abdomen not distended Percussion/Palpation: abdomen soft; abdomen nontender Neurologic: moves all extremities and awake Psychiatric: A+Ox3, euthymic affect Genitourinary: no CVA tenderness Results & Data Vital Signs (Past 12 Hours) Vital Signs Temp Pulse Resp BP Pulse Ox 12/06/19 07:00 36.6 C 66 16 147/85 H 95 PG Care Time/CCT Total # of Minutes Spent Total Time Spent with Patient: Total time spent is greater than 50% in coordination of care (as documented) at patient's floor/unit and/or counseling p atient: Coding Level of Care Code 53545 Subseq Hosp Care Lvl 2 Diagnoses Ureteral calculi N20.1
--- NOTE | 2019-12-06 12:51 | XRay Report ---
TWO VIEW CHEST CLINICAL HISTORY: Preoperative examination. FINDINGS: PA and lateral chest radiographs are compared to study dated 02/28/2017. The cardiomediastin al silhouette is unremarkable. Chronic interstitial thickening is similar to previous. There is bibas ilar scarring/atelectasis. No airspace consolidation or pleural effusion is seen. There is no pneumot horax. The bony thorax appears intact. IMPRESSION: No active disease in the chest. ACT 112: Negative or not required by law. Electronically signed by: Killian Sandra M.D. 12/06/2019 12:50 PM
--- NOTE | 2019-12-06 17:57 | Electrocardiogram Report ---
Test Reason : Blood Pressure : / mmHG Vent. Rate : 067 BPM Atrial Rate : 067 BPM P-R Int : 144 ms QRS Dur : 092 ms QT Int : 380 ms P-R-T Axes : 060 029 008 degrees QTc Int : 401 ms Normal sinus rhythm Normal ECG When compared with ECG of 28-FEB-2017 17:34, Inverted T waves have replaced nonspecific T wave abnormality in Inferior leads Confirmed by Giovany Wilson ([id number]) on 12/06/2019 5:57:35 PM Referred By: REFERRED SELF Confirmed By:Quinton Wilson
--- NOTE | 2019-12-12 14:16 | Discharge Summary ---
Date of Service December 06, 2019 Admission HPI Per Admitting Provider Dangelo Ellsworth is a 49yo male with no significant past medical or surgical history. He developed left sided flank pain on 12/03/19 which was self-limiting, also passed some dark colored urine. He is uncertain if there was blood in the urine. Pain did not reoccur until this AM. When he woke up he was unable to get out of bed due to pain. Pain in LLQ and flank, severe, associated with some nausea. He denies fever/chills/back pain/dysuria. No additional complaints at this time. ER Course: Ceftriaxone, Toradol Principal Diagnosis Ureteral calculi Discharge Exam General: patient uncomfortable, NAD, non-toxic in appearance, AA&O x 4 Skin: warm, dry, intact, no rashes or lesions HEENT: NC/AT, PERRL, EOMI, anicteric sclera, conjunctiva without injection, external ear normal to inspection and nontender, nares patent, moist mucus membranes, dentition intact, no oropharyngeal lesions, neck supple, trachea midline, no LAD, no thyromegaly, no JVD Heart: +S1/S2, regular, no m/r/g Lungs: equal air entry bilaterally, no rales/rhonchi/wheezes Abd: +BS, soft, ND, tender in LLQ, no rebound/guarding/peritoneal signs, no masses/organomegaly/ascites Ext: warm, 2+ pulses in UE/LE bilaterally, no clubbing/cyanosis or edema Neuro: nonfocal, patient AA&O x 4, speech intact, no facial droop, moving all extremities on command with equal strength 5/5 Discharge Data Allergies Allergy/AdvReac Type Severity Reaction Status Date / Time No Known Allergies Allergy Unverified 12/11/19 14:31 Consultations 12/05/19 13:40 ED Decision to Admit Stat 12/05/19 15:41 Consult Case Management - Discharge Planning Routine Consult Urology Routine Ordered Studies 12/05/19 11:14 CT abd pelvis IV con only Stat Hospital Course (1) Ureteral calculi: 49yo male with no significant past medical/surgical history presenting with 5mm x 4mm proximal left ureteral calculus with mild hydronephrosis and perinephric infiltration. Patient afebrile, hemodynamically stable, non-toxic in appearance. UA does not suggest infection. -Admit to medical floor -IVF - LR at 125mL/hr x 2 liters -Toradol 15mg IV q 6 hours as needed for pain. Patient does not wish to receive narcotic pain medication -Tylenol as needed for pain -Zofran as needed for nausea -Ceftriaxone 1gm IV daily -Flomax 0.4mg po q daily -Strain all urine -Urology consultation appreciated: (bold) Doing well this morning, pain improved No intervention planned today Stone well visualized on KUB Reviewed KUB with patient and discussed treatment options including MET vs URS vs ESWL Patient would like to proceed with scheduling ESWL Discontinued Toradol Recommend continue hydration, Tamsulosin, and pain control Will arrange f/u with our service as outpatient to schedule ESWL. Ordered EKG and CXR while inpatient to be done prior to discharge. Please have patient report to [facility] for H&P and paperwork directly after discharge. (2) Elevated blood pressure reading: Patient with elevated blood pressure readings in setting of acute pain and distress. Voiced some concern over numbers. -Continue to monitor -Patient wishes to establish care with a PCP Total Time Total Time Spent Total Time Spent (In Minutes): 32 Total Time Includes: Examination of the Patient, Discharge Planning and Medication Reconciliation Discharge Plan Discharge Items Patient Disposition: Home - Self-Care Reason For Visit: RENAL STONE,HYDRONEPHROSIS Discharge Diagnosis: Hydronephrosis Activity: Resume your previous activity Non-emergency contact: Primary Care Provider Call non-emergency contact if: you have any medication questions Follow-up/Referrals: PCP,NO [Primary Care Provider] - Diet: Regular Addtl Attending Provider Instructions: Instructions from urology: Please report to [facility] directly after discharge for your H&P and paperwork for surgery. EKG and CXR while inpatient to be done prior to discharge. Pending Studies at Discharge: No Stand-Alone Forms: Call Back Authorization, My [employer], Smoking Cessation Medications and DC Order Prescriptions: New tamsulosin 0.4 mg Capsule 0.4 mg PO HS Qty: 30 RF: 0 No Action tramadol 50 mg tablet 50 mg PO BID PRN (Reason: pain) Qty: 10 RF: 0 Discharge Orders: Discharge Order (Routine); Ordered 12/06/19 Ordered By: Nickolas A Saborio Admission Data Admit Date/Time: 12/05/19 14:35 Attending Provider: Nickolas Barbosa Admit Provider: June Barrera Primary Care Provider: PCP,NO Other Providers: Arun Rubalcava ; Adria Cuba Other Interventions: Discharge Summary Assessment (RN) Last Done: 12/06/19 13:25 DC Date/Time DO NOT enter until pt leaves facility: 12/06/19 14:19 Coding Level of Care Code D/C Day Management >30 mins Diagnoses Ureteral calculi N20.1 Elevated blood pressure reading R03.0
== END 2019-12-06 14:19 | disposition home or self-care (01) | DRG 694 ==
LOC: MERGE 10:45 → ED 10:45 → SUATTDRO 14:35 → 3W 14:35

== ENCOUNTER 2019-12-11 12:07 | Observation (INO) ==
[2019-12-11] MEDS ORDERED: SODIUM CHLORIDE 0.9% 1000ML 1,000 ML IV SCH (12:45)
[2019-12-11 12:47] LABS: Basophils # (auto) 0.01 K/uL (0-0.2); Basophils % (auto) 0.2 %; Eosinophils # (auto) 0.05 K/uL (0-0.5); Eosinophils % (auto) 0.9 %; Hematocrit (blood only) 46.1 % (42-52); Hemoglobin 15.6 g/dL (14.0-18.0); Immature Granulocytes # (auto) 0.01 K/uL (0.00-0.02); Immature Granulocytes % (auto) 0.2 %; Lymphocytes # (auto) 1.32 K/uL (1.2-3.4); Mean Corpuscular Hemoglobin 29.9 pg (25-34); Mean Corpuscular Hgb Conc 33.8 g/dL (32-36); Mean Corpuscular Volume 88.5 fL (80-100); Mean Platelet Volume 10.5 fL (7.4-10.4); Monocytes # (auto) 0.46 K/uL (0.11-0.59); Neutrophils # (auto) 3.88 K/uL (1.4-6.5); Neutrophils % (auto) 67.7 %; Platelet Count 162 K/uL (130-400); RDW Coefficient of Variation 14.1 % (11.5-14.5); Red Blood Count 5.21 M/uL (4.7-6.1); White Blood Count 5.73 K/uL (4.8-10.8)
[2019-12-11 13:03] LABS: Albumin Level 4.1 gm/dl (3.4-5.0); BUN Creatinine Ratio 10.8 (10-20); Calcium 9.4 mg/dl (8.5-10.1); Creatinine Clr Calc Pharmacy 83.3 ml/min; Est GFR (African American) 86.7; Est GFR (Non-African American) 74.8; Potassium 3.9 mmol/L (3.5-5.1)
[2019-12-11 13:06] LABS: Albumin Globulin Ratio 1.1 (0.9-2); Bilirubin,Total 0.5 mg/dl (0.2-1); Globulin 3.8 gm/dl (2.5-4.0); Total Protein 7.9 gm/dl (6.4-8.2)
[2019-12-11 13:14] LABS: Appearance Urine Clear (Clear); Bacteria Urine Automated Negative (Negative); Bilirubin Urine Negative (Negative); Blood Urine Negative (Negative); Color Urine Yellow; Glucose Urine UA Negative (Negative); Ketones Urine Negative (Negative); Leukocyte Esterase Urine Trace (Negative); Nitrite Urine Negative (Negative); Protein Urine Negative (Negative); RBC Urine Automated 0-4 /hpf (0-4); Specific Gravity Urine 1.018 (1.000-1.030); Urobilinogen Urine Negative (Negative); pH Urine 5.5 (4.5-7.5)
[2019-12-11 13:43] LABS: Sperm Urine Present (None Prsent)
--- NOTE | 2019-12-11 13:48 | Emergency Department Note ---
History of Present Illness General Chief complaint: Kidney Stone Stated complaint: KIDNEY STONES Time Seen by Provider: 12/11/19 12:19 History of Present Illness Maximum Pain Intensity: 8 This is a 49-year-old male that presents to the emergency department via private vehicle with complaints of "kidney stones". Patient notes that he was seen here in the emergency department on December 05 and was admitted at that time for a kidney stone. He was diagnosed with a 5 x 4 proximal left ureteral calculus. He was discharged home and was doing okay but last night the pain was severe. He notes that it has been severe and he has been unable to work secondary to this. He presents today over hopes of possibly having intervention for the stone. Pain was a 10/10 last night but on arrival is now 3/10. No fevers or chills. No nausea or vomiting. He points to the left flank/abdomen as a location of pain. He is tentatively scheduled for intervention this Wednesday. Home Medications Home Medications Medication Instructions Recorded Confirmed Type tamsulosin 0.4 mg PO HS #30 cap 12/06/19 12/11/19 Rx tramadol 50 mg tablet 50 mg PO BID PRN #10 tab 12/06/19 12/11/19 Rx Allergies Allergy/AdvReac Type Severity Reaction Status Date / Time No Known Allergies Allergy Unverified 12/11/19 14:31 Past Med/Surg History Medical History Kidney stones Sleep apnea no device Surgical History History of colonoscopy History of esophagogastroduodenoscopy (EGD) History of tonsillectomy History of wisdom tooth extraction Family History Grandmother (Maternal) Family history of diabetes mellitus Other Heart disease Hypertension No family history of adverse response to anesthesia Social History Preferred Language: Faroese Communication Ability: Effective Drug Purchaser Required: No Beliefs That Will Affect Care: None Current Living Situation: Spouse Other Information That Helps Us Care for You: No Feels Safe at Home: Yes Safety Concerns: Feels Safe At This Time Smoking Status: Never smoker Second Hand Exposure: No ; Hx Alcohol Use: Yes Alcohol type: wine Hx Substance Use: No Review of Systems A total of 10 systems reviewed and were otherwise negative Physical Exam Vital Signs Vital Signs - 24 hr 12/11/19 12:15 12/11/19 14:08 12/11/19 15:55 Temperature 36.7 C Temperature Source Oral Pulse Rate 74 Pulse Rate [Finger] 62 63 Respiratory Rate 16 20 18 Blood Pressure 157/105 H Blood Pressure [Left Arm] 162/103 H 161/100 H Blood Pressure Mean 122 Blood Pressure Mean [Left Arm] 122 120 Pulse Oximetry 97 99 99 Oxygen Delivery Method Room Air Room Air Sepsis Recent Fever Within 48 Hours No Sepsis New/Unexplained Change in Mental Status No Sepsis Action Taken by Nursing No Action Required VITAL SIGNS - Vital signs and nursing notes were reviewed. Stable and afebrile. GENERAL -49-year-old male appearing his stated age who is in no acute distress. Communicates well with provider and answers questions appropriately. SKIN - Without rashes. No meningeal or petechial rash. HEAD - NC/AT. ABDOMEN - Abdominal contour normal without pulsations or visible masses. BS normoactive all four quadrants. No tenderness, palpable masses, hepatosplenomegaly, or ascites noted. EXTREMITIES - +5/5 strength noted in UE/LE bilaterally. NEUROLOGIC - Cranial nerves II through XII grossly intact. PSYCH - A&O, and cooperates fully with examiner. Pt is very pleasant and interacts well with examiner. Course Administered Medications Lactated Ringer's (Lr) 1,000 mls @ 125 mls/hr IV .Q8H VILMA Stop: 01/11/20 00:44 Last Admin: 12/12/19 01:01 Dose: 125 mls/hr Documented by: [id number] Tamsulosin HCl (Flomax) 0.4 mg PO HS VILMA Stop: 01/10/20 20:59 Last Admin: 12/11/19 20:47 Dose: 0.4 mg Documented by: [id number] Tramadol HCl (Ultram) 50 mg PO Q4H PRN PRN Reason: Pain Stop: 01/10/20 17:57 Last Admin: 12/11/19 22:39 Dose: 50 mg Documented by: [id number] Discontinued Medications Sodium Chloride (Nss 1000ml) 1,000 mls @ 999 mls/hr IV .Q1H1M VILMA Stop: 12/11/19 13:45 Last Infusion: 12/11/19 13:29 Dose: 0 mls/hr Documented by: [id number] Admin: 12/11/19 12:36 Dose: 999 mls/hr Documented by: [id number] Influenza Virus Vaccine Quadrival (Flucelvax Quad Vaccine) 0.5 ml IM .ONCE ONE Stop: 12/11/19 19:47 Last Admin: 12/11/19 22:40 Dose: 0.5 ml Documented by: [id number] Medical Decision Making Laboratory Data Result diagrams: 12/11/19 12:35 12/11/19 12:35 Lab Results 12/11/19 12/11/19 12/11/19 Range/Units 12:35 12:35 12:35 WBC 5.73 (4.8-10.8) K/uL RBC 5.21 (4.7-6.1) M/uL Hgb 15.6 (14.0-18.0) g/dL Hct 46.1 (42-52) % MCV 88.5 (80-100) fL MCH 29.9 (25-34) pg MCHC 33.8 (32-36) g/dL RDW Std Deviation 46.0 (36.4-46.3) fL RDW Coeff of Stephen 14.1 (11.5-14.5) % Plt Count 162 (130-400) K/uL MPV 10.5 H (7.4-10.4) fL Immature Gran % (Auto) 0.2 % Neut % (Auto) 67.7 % Lymph % (Auto) 23.0 % [place] % (Auto) 8.0 % Eos % (Auto) 0.9 % Baso % (Auto) 0.2 % Immature Gran # (Auto) 0.01 (0.00-0.02) K/uL Neut # (Auto) 3.88 (1.4-6.5) K/uL Lymph # (Auto) 1.32 (1.2-3.4) K/uL [place] # (Auto) 0.46 (0.11-0.59) K/uL Eos # (Auto) 0.05 (0-0.5) K/uL Baso # (Auto) 0.01 (0-0.2) K/uL Sodium 139 (136-145) mmol/L Potassium 3.9 (3.5-5.1) mmol/L Chloride 104 (98-107) mmol/L Carbon Dioxide 30 (21-32) mmol/L Anion Gap 4.0 (3-11) BUN 12 (7-18) mg/dl Creatinine 1.15 (0.6-1.4) mg/dl Est Cr Clr Drug Dosing 83.3 ml/min Est GFR ( Amer) 86.7 Est GFR (Non-Af Amer) 74.8 BUN/Creatinine Ratio 10.8 (10-20) Glucose 101 H (70-99) mg/dl Calcium 9.4 (8.5-10.1) mg/dl Total Bilirubin 0.5 (0.2-1) mg/dl AST 14 L (15-37) U/L ALT 34 (12-78) U/L Alkaline Phosphatase 106 (45-117) U/L Total Protein 7.9 (6.4-8.2) gm/dl Albumin 4.1 (3.4-5.0) gm/dl Globulin 3.8 (2.5-4.0) gm/dl Albumin/Globulin Ratio 1.1 (0.9-2) Urine Color Yellow Urine Appearance Clear (Clear) Urine pH 5.5 (4.5-7.5) Ur Specific [place] 1.018 (1.000-1.030) Urine Protein Negative (Negative) Urine Glucose (UA) Negative (Negative) Urine Ketones Negative (Negative) Urine Blood Negative (Negative) Urine Nitrite Negative (Negative) Urine Bilirubin Negative (Negative) Urine Urobilinogen Negative (Negative) Ur Leukocyte Esterase Trace H (Negative) Urine WBC (Auto) 5-10 H (0-5) /hpf Urine RBC (Auto) 0-4 (0-4) /hpf U Hyaline Cast (Auto) 1-5 (0-5) /lpf U Epithel Cells (Auto) 5-10 H (0-5) /lpf Urine Bacteria (Auto) Negative (Negative) Urine Sperm Present A (None Prsent) Imaging Data Radiologist's Impression: US renal/blad retro comp CLINICAL HISTORY: 49 years-old Male presenting with L flank pain, hx stone. TECHNIQUE: Real-time grayscale and limited color Doppler ultrasound imaging of the kidneys and bladder was performed. COMPARISON: CT from 12/05/2019. FINDINGS: Right kidney: Normal echogenicity with preserved corticomedullary differentiation. Normal cortical thickness. Right kidney measures 10.8 cm. No hydronephrosis. No convincing evidence of calculus or mass. Left kidney: Normal echogenicity with preserved corticomedullary differentiation. Normal cortical thickness. Left kidney measures 12.1 cm. Mild pelvocaliectasis with blunting of the calyces. No convincing evidence of calculus or mass. Bladder: Normal. Diminutive left ureteral jet with an 8 mm hyperechoic focus in the left ureterovesical junction compatible with calculus. Preserved right ureteral jet. Other: None. IMPRESSION: 1. Mild left hydroureteronephrosis with a partially obstructing calculus in the left UVJ. This represents an interval progression of the prior proximal to mid left ureteral calculus. ACT 112: Negative or not required by law. Electronically signed by: Adal Adhikari M.D. 12/11/2019 2:05 PM KUB HISTORY: Acute left-sided flank pain with history of kidney stones L flank pain, hx stone COMPARISON: KUB 12/06/2019 FINDINGS: The bowel gas pattern is non-obstructive. Mild to moderate fecal retention. There is no organomegaly. Slight distal migration of approximately 1.5 mm involving the 4 mm calculus of the distal left ureter. The renal shadows are mostly obscured by bowel gas. Left nephrolithiasis redemonstrated. No pneumoperitoneum or pneumatosis. No fracture. IMPRESSION: 1. Slight distal migration of the 4 mm distal left ureteral calculus. 2. Left nephrolithiasis. ACT 112: Negative or not required by law. The above report was generated using voice recognition software. It may contain grammatical, syntax or spelling errors. Electronically signed by: Tai Martinez M.D. 12/11/2019 2:13 PM MDM Narrative Patient was seen and evaluated as above in room A2. Review was performed of nursing notes and vital signs. After obtaining a thorough history and physical examination the above work up was performed. He presents to us today with a known left ureteral calculus now with severe pain. On arrival he is feeling much better but is concerned about returning home with the amount of pain that he was experiencing and noted that he is not been able to work secondary to this and presents in hopes of potentially having intervention for the stone. He declines pain medication on arrival or antiemetics. He was hydrated with normal saline. Ultrasound and KUB were obtained. There is slight distal migration of the 4 mm just ureteral calculus with persistence of secondary obstructive findings on ultrasound. Patient's labs do not reveal any sign of infection. Urinalysis does not reveal infection. I discussed this with urology, TODD Duval. At this time it was thought that the patient could potentially be added to the surgical schedule for tomorrow for intervention. Although there was no guarantee of this and this was reiterated to the patient, this was the patient's preference versus being discharged home to follow-up Wednesday for his planned procedure. Patient will admitted to medicine for possible intervention tomorrow. Please refer to further documentation regarding his stay. In the evaluation and treatment of this patient the following differential diagnoses were entertained: Pyelonephritis, ureteral calculi, calyceal rupture, hydronephrosis, AAA, among others Impression & Plan Ureteral calculi, Hydroureteronephrosis Discharge Plan Visit Data *Final* Discharge Date/Time: 12/11/19 16:55 Chief Complaint: Kidney Stone Stated Complaint: KIDNEY STONES ED Provider: Mulugeta Lawson ED Midlevel Provider: Alexandre Valentine Discharge Problem: Ureteral calculi, Hydroureteronephrosis Patient Disposition: Admitted As Inpatient Condition: Good Discharge Instructions Interventions: ED Discharge Assessment Last Done: 12/11/19 16:55
--- NOTE | 2019-12-11 14:06 | Ultrasound Report ---
US renal/blad retro comp CLINICAL HISTORY: 49 years-old Male presenting with L flank pain, hx stone. TECHNIQUE: Real-time grayscale and limited color Doppler ultrasound imaging of the kidneys and bladde r was performed. COMPARISON: CT from 12/05/2019. FINDINGS: Right kidney: Normal echogenicity with preserved corticomedullary differentiation. Normal cortical th ickness. Right kidney measures 10.8 cm. No hydronephrosis. No convincing evidence of calculus or mass . Left kidney: Normal echogenicity with preserved corticomedullary differentiation. Normal cortical thi ckness. Left kidney measures 12.1 cm. Mild pelvocaliectasis with blunting of the calyces. No convinci ng evidence of calculus or mass. Bladder: Normal. Diminutive left ureteral jet with an 8 mm hyperechoic focus in the left ureterovesic al junction compatible with calculus. Preserved right ureteral jet. Other: None. IMPRESSION: 1. Mild left hydroureteronephrosis with a partially obstructing calculus in the left UVJ. This repre sents an interval progression of the prior proximal to mid left ureteral calculus. ACT 112: Negative or not required by law. Electronically signed by: Adal Adhikari M.D. 12/11/2019 2:05 PM
--- NOTE | 2019-12-11 14:15 | XRay Report ---
KUB HISTORY: Acute left-sided flank pain with history of kidney stones L flank pain, hx stone COMPARISON: KUB 12/06/2019 FINDINGS: The bowel gas pattern is non-obstructive. Mild to moderate fecal retention. There is no org anomegaly. Slight distal migration of approximately 1.5 mm involving the 4 mm calculus of the distal left ureter. The renal shadows are mostly obscured by bowel gas. Left nephrolithiasis redemonstrated . No pneumoperitoneum or pneumatosis. No fracture. IMPRESSION: 1. Slight distal migration of the 4 mm distal left ureteral calculus. 2. Left nephrolithiasis. ACT 112: Negative or not required by law. The above report was generated using voice recognition software. It may contain grammatical, syntax o r spelling errors. Electronically signed by: Tai Martinez M.D. 12/11/2019 2:13 PM
--- NOTE | 2019-12-11 16:30 | History & Physical Report ---
Date of Service December 11, 2019 Assessment & Plan (1) Ureteral calculi: As discussed by the ER with urology. Patient is to be admitted overnight for lithotripsy tomorrow. NPO after midnight. No symptoms or sign of infection or worsening renal function from history, exam or labs. No chronic medical needs identified. Mild left hydronephrosis noted on US KUB similar to previous CT. Cr at baseline. Patient is medically optimized for surgery at this time. History of Present Illness Chief Complaint: Renal Colic Primary Care Provider: NO PCP Dangelolibertad Ellsworth is a 49 year old male with known ureterolithiasis presents to the ER due to renal colic pain that occurred last night but on arrival to ER was 01/15. Pain is in his left groin, has been intermittent occurring multiple times a day lasting for hours (average 4 hours) on each occasion and at it's worse severity 08/17 although he also reports the medication prescribed is effective. No radiation of the pain. No fevers, chills, nausea, vomiting, change in urine. He has been hydrating well since his diagnosis on December 05. He followed up with urology the following day and plan was for outpatient extracorporeal shock wave lithotripsy which I understand from the ER discussion with urology was planned for this Wednesday. However ER discussed with urology who recommend patient given option to come into hospital for possible ESWL tomorrow and the patient wishes to go this route as he has been unable to work with the pain ongoing. Allergies Allergy/AdvReac Type Severity Reaction Status Date / Time No Known Allergies Allergy Unverified 12/11/19 14:31 Home Medications Home Medications Medication Instructions Recorded Confirmed Type tamsulosin 0.4 mg PO HS #30 cap 12/06/19 12/11/19 Rx tramadol 50 mg tablet 50 mg PO BID PRN #10 tab 12/06/19 12/11/19 Rx Past Med/Surg History Medical History Kidney stones Sleep apnea no device Surgical History History of colonoscopy History of esophagogastroduodenoscopy (EGD) History of tonsillectomy History of wisdom tooth extraction Family History Grandmother (Maternal) Family history of diabetes mellitus Other Heart disease Hypertension No family history of adverse response to anesthesia Social History Preferred Language: Upper Sorbian Communication Ability: Effective Pantograph I Engraver Required: No Beliefs That Will Affect Care: None Current Living Situation: Spouse Other Information That Helps Us Care for You: No Feels Safe at Home: Yes Safety Concerns: Feels Safe At This Time Smoking Status: Never smoker Second Hand Exposure: No ; Hx Alcohol Use: Yes Alcohol type: wine Hx Substance Use: No Review of Systems Review of Systems: All systems reviewed & are unremarkable except as noted in HPI & below Physical Exam Constitutional: WD/WN, vitals as above Eyes: + anicteric sclerae; normal pupil size ENMT: external ear and nose normal, oropharynx normal Neck: trachea midline, no thyromegaly Respiratory: normal respiratory effort, lungs clear to auscultation Cardiovascular: RRR, no murmur, no edema Gastrointestinal (Abdomen): normal bowel sounds, soft, nontender, no hepatosplenomegaly Musculoskeletal: no cyanosis or clubbing, extremities motor strength 5/5 Skin: no rashes, warm and dry Neurologic: moves all extremities and awake; no focal motor deficits and not confused Psychiatric: A+Ox3, euthymic affect Genitourinary: no CVA tenderness Results & Data Vital Signs (Past 12 Hours) Vital Signs Temp Pulse Pulse Resp BP BP Pulse Ox 12/11/19 15:55 63 18 161/100 H 99 12/11/19 14:08 62 20 162/103 H 99 12/11/19 12:15 36.7 C 74 16 157/105 H 97 Diagnostic Findings KUB IMPRESSION: 1. Slight distal migration of the 4 mm distal left ureteral calculus. 2. Left nephrolithiasis. US renal/blad retro comp IMPRESSION: 1. Mild left hydroureteronephrosis with a partially obstructing calculus in the left UVJ. This represents an interval progression of the prior proximal to mid left ureteral calculus. Code Status & VTE Plan Code Status Full VTE Prophylaxis Plan VTE Prophylaxis will be ordered: No Reason for no VTE drug order: Treatment not indicated Reason for no VTE mechanical prophylaxis: Treatment not indicated PG Care Time/CCT Total # of Minutes Spent Total Time Spent with Patient: Total time spent is greater than 50% in coordination of care (as documented) at patient's floor/unit and/or counseling patient: Coding Level of Care Code 67838 Initial Inpt Care Lvl 2 Diagnoses Ureteral calculi N20.1
[2019-12-11] MEDS ORDERED: ACETAMINOPHEN 325 MG TAB PO PRN (17:58)
[2019-12-11] MEDS ORDERED: TRAMADOL HCL 50 MG TABLET PO PRN (17:58)
[2019-12-11] MEDS ORDERED: MoRPHine SULFATE 2 MG/ML CARP IV PRN (17:58)
[2019-12-11] MEDS ORDERED: ONDANSETRON INJ 2 MG/ML 2 ML VIAL IV PRN (17:58)
[2019-12-11] MEDS ORDERED: INFLUENZA VIRUS QUAD VACCINE 0.5 ML SYR IM ONE (19:46)
[2019-12-11] MEDS ORDERED: INFLUENZA ADMINISTRATION CHARGE ONE (19:46)
[2019-12-11] MEDS ORDERED: TAMSULOSIN HCL 0.4 MG CAP PO SCH (21:00)
[2019-12-12] MEDS: LACTATED RINGER'S 1,000 ML IV SCH ×2 (01:01→09:10)
--- NOTE | 2019-12-12 08:10 | Urology Consultation ---
Date of Consultation December 12, 2019 Assessment & Plan (1) Ureteral calculi: 49 year-old male patient admitted with obstructing left 4mm UVJ stone with associated mild hydroureteronephrosis. -Maintain NPO status -Continue PRN pain medication -Continue IV resuscitation Findings reviewed with Dr. Carrasco Given his intractable pain and hydro in the context of an obstructing 4 mm left UVJ stone, will proceed with OR for cysto, left retrograde pyelogram and left stent placement, possible ureteroscopy, laser lithotripsy, stone basketing, possible ureteral dilation depending on findings. Risks and benefits to be reviewed with patient by surgeon. OR notified. Preoperative CXR and EKG performed 12/06/19. Will cover with IV Ciprofloxacin preoperatively. Patient in agreement with above plan. Spoke with patient about options risks and consent and he agreed to proceed with cystoscopy possible ureteroscopy and laser lithotripsy and stent placement (2) Hydroureteronephrosis: History of Present Illness Reason for Consultation: Left ureteral stone Attending Physician: Robert Prado MD History of Present Illness 49 year-old male patient admitted on 12/11/19 with of 4 mm left UVJ stone and intractable left flank pain. Patient recently admitted to [facility] from 12/05/19 until 12/06/19 for left flank pain secondary to 4 mm left ureteral stone. See inpatient notes for details. He was discharged with Tamsulosin and had follow-up in office same day of discharge. ESWL was set up for following Wednesday however patient rescheduled due to personal schedule conflict. ESWL was then scheduled for Sunday December 15, 2019. Presents for further management of stone and potential intervention. Chart review: WBC 5.73 Creatinine 1.15 No urine culture however urinalysis not overly concerning for infection. KUB reveals: 1. Slight distal migration of the 4 mm distal left ureteral calculus. 2. Left nephrolithiasis. Renal ultrasound: 1. Mild left hydroureteronephrosis with a partially obstructing calculus in the left UVJ. This represents an interval progression of the prior proximal to mid left ureteral calculus. Patient laying in bed. No acute distress. Did have pain overnight - rated 5 out of 10 in left flank. Pain controlled with PRN oral Tramadol. Denies fevers, chills, nausea or vomiting. No dysuria or hematuria. Non-toxic appearing. Denies any changes in health history since his more recent hospital admission. Allergies Allergy/AdvReac Type Severity Reaction Status Date / Time No Known Allergies Allergy Unverified 12/11/19 14:31 Home Medications Home Medications Medication Instructions Recorded Confirmed Type tamsulosin 0.4 mg PO HS #30 cap 12/06/19 12/11/19 Rx tramadol 50 mg tablet 50 mg PO BID PRN #10 tab 12/06/19 12/11/19 Rx Patient History Medical History Kidney stones Sleep apnea no device Surgical History History of colonoscopy History of esophagogastroduodenoscopy (EGD) History of tonsillectomy History of wisdom tooth extraction Family History Grandmother (Maternal) Family history of diabetes mellitus Other Heart disease Hypertension No family history of adverse response to anesthesia Social History Preferred Language: Romansh Communication Ability: Effective Network Technician Required: No Beliefs That Will Affect Care: None Current Living Situation: Spouse Other Information That Helps Us Care for You: No Feels Safe at Home: Yes Safety Concerns: Feels Safe At This Time Smoking Status: Never smoker Second Hand Exposure: No ; Hx Alcohol Use: Yes Alcohol type: wine Hx Substance Use: No Review of Systems Constitutional: no fever and no chills Gastrointestinal: no nausea and no vomiting Genitourinary: + as per Subjective / HPI Neurologic: no dizziness and no syncope Physical Exam Constitutional: comfortable; no acute distress, not ill appearing, no altered mental status and not lethargic Eyes: no nystagmus ENMT: Ears: no hearing impairment Neck: trachea midline Respiratory: no respiratory distress, does not use accessory muscles, no cough and no grunting Cardiovascular: Vessels: no JVD Extremities: no edema Chest (Breasts): Chest: normal inspection of chest Gastrointestinal (Abdomen): Inspection/Auscultation: abdomen not distended and no abdominal edema Percussion/Palpation: abdomen soft; abdomen nontender Musculoskeletal: no cyanosis or clubbing, extremities motor strength 5/5 Head/Neck/Chest: normocephalic and head atraumatic Extremities: extremities normal to inspection Skin: no rashes, warm and dry Neurologic: awake; not confused and not obtunded Psychiatric: Orientation: alert and oriented x 3 Eye Contact: good eye contact Affect: no depressed affect Genitourinary: no CVA tenderness Lymphatic: no lymphadenopathy and no lymphedema Results & Data Vital Signs (Past 12 Hours) Vital Signs Temp Pulse Resp BP Pulse Ox 12/12/19 07:40 36.9 C 60 18 144/89 H 96 12/11/19 23:38 36.7 C 81 16 141/89 H 92 PG Care Time/CCT Total # of Minutes Spent Total Time Spent with Patient: Total time spent is greater than 50% in coordination of care (as documented) at patient's floor/unit and/or counseling patient: Coding Level of Care Code 53098 Inpt Consult Level 4 Diagnoses Ureteral calculi N20.1 Hydroureteronephrosis N13.30
--- NOTE | 2019-12-12 09:03 | Hospitalist Progress Note ---
Date of Service December 12, 2019 Assessment & Plan (1) Ureteral calculi: Patient is s/p cystoscopy, left retrograde pyelogram, left stent placement, laser lithotripsy, stone extraction, ureteroscopy by Dr. Arun Rubalcava urologist. Patient tolerated procedure well. He is eager to go home. Dr. Rubalcava recommended 3 days of Macrobid 100 mg p.o. twice daily and to continue tamsulosin 0.4 mg p.o. nightly. Patient should follow-up at urology clinic on December 21, 2019 at 940 located at [address] [place] [address] Dr. [facility] urology group for the stent removal. Subjective Patient seen and examined at the bedside. He tolerated well cystoscopy, left retrograde pyelogram, left stent placement, laser lithotripsy, stone extraction, ureteroscopy by Dr. Rubalcava urologist. This was for ureteral calculus and hydronephrosis. Patient reported that he had some bloody urine but it is clearing up. Patient denies fever, chills, chest pain, shortness of breath, abdominal pain, frequency, urgency. Patient is eager to go home. Review of Systems Review of Systems: All systems reviewed & are unremarkable except as noted in HPI & below Physical Exam Constitutional: WD/WN, vitals as above Eyes: + anicteric sclerae; normal pupil size ENMT: external ear and nose normal, oropharynx normal Neck: trachea midline, no thyromegaly Respiratory: normal respiratory effort, lungs clear to auscultation Cardiovascular: RRR, no murmur, no edema Gastrointestinal (Abdomen): normal bowel sounds, soft, nontender, no hepatosplenomegaly Musculoskeletal: no cyanosis or clubbing, extremities motor strength 5/5 Skin: no rashes, warm and dry Neurologic: moves all extremities and awake; no focal motor deficits and not confused Psychiatric: A+Ox3, euthymic affect Genitourinary: no CVA tenderness Results & Data ([facility]) Vital Signs (Past 12 Hours) Vital Signs Temp Pulse Resp BP Pulse Ox 12/12/19 07:40 36.9 C 60 18 144/89 H 96 12/11/19 23:38 36.7 C 81 16 141/89 H 92 PG Care Time/CCT Total # of Minutes Spent Total Time Spent with Patient: Total time spent is greater than 50% in coordination of care (as documented) at patient's floor/unit and/or counseling patient: Coding Level of Care Code 95776 Subseq Hosp Care Lvl 3 Diagnoses Ureteral calculi N20.1
[2019-12-12] MEDS ORDERED: CIPROFLOXACIN 400 MG/200 ML BAG IV SCH (09:30)
[2019-12-12] MEDS ORDERED: IOTHALAMATE MEGLUMINE II 17.2% 250 ML VIAL ONE (10:16)
[2019-12-12] MEDS ORDERED: ONDANSETRON INJ 2 MG/ML 2 ML VIAL ONE (10:31)
[2019-12-12] MEDS ORDERED: MIDAZOLAM HCL 1 MG/ML 2ML VIAL ONE (10:31)
[2019-12-12] MEDS ORDERED: fentaNYL citrate 100 MCG/2 ML VIAL ONE (10:31)
[2019-12-12] MEDS ORDERED: DEXAMETHASONE SOD INJ 4 MG/ML VIAL ONE (10:31)
[2019-12-12] MEDS ORDERED: LIDOCAINE HCL 2% 2 ML VIAL/AMP(20MG/ML) INFIL ONE (10:31)
[2019-12-12] MEDS ORDERED: PROPOFOL IV EMULSION 10 MG/ML 20 ML VIAL IV ONE (10:31)
--- NOTE | 2019-12-12 10:53 | History & Physical Bridge Note ---
Date of Service December 12, 2019 History & Physical Bridge Note I have examined the patient, reviewed the History & Physical and in the interval since the performance of the History & Physical I have noted the following changes of clinical significance: no changes noted
--- NOTE | 2019-12-12 10:54 | Anesthesiology Consultation ---
Date of Service December 12, 2019 Assessment & Plan Chart Review Chart Review: Acceptable Risk for Surgery Consults Requested none History Surgery Operation Date: 12/12/19 09:00 Proposed Procedures p Cystoscopy, Left Retrograde Pyelogram, Left Stent Placement, Laser Lithotripsy, Possible Ureteroscopy - Arun Rubalcava MD Height/Weight Height: 5 ft 11 in Weight: 83 kg Allergies Allergy/AdvReac Type Severity Reaction Status Date / Time No Known Allergies Allergy Unverified 12/11/19 14:31 Medications Home Medications Medication Instructions Recorded Confirmed Last Taken tamsulosin 0.4 mg PO HS #30 cap 12/06/19 12/11/19 12/10/19 tramadol 50 mg tablet 50 mg PO BID PRN #10 tab 12/06/19 12/11/19 12/10/19 21:00 Active Medications Generic Name Dose Route Start Last Admin Trade Name Freq PRN Reason Stop Dose Admin Lactated Ringer's 1,000 mls @ 125 mls/hr 12/12/19 00:45 12/12/19 10:01 Lr IV 01/11/20 00:44 0 mls/hr .Q8H VILMA Infusion Tamsulosin HCl 0.4 mg 12/11/19 21:00 12/11/19 20:47 Flomax PO 01/10/20 20:59 0.4 mg HS VILMA Administration Tramadol HCl 50 mg 12/11/19 17:58 12/11/19 22:39 Ultram PO 01/10/20 17:57 50 mg Q4H PRN Administration Pain NPO Date Last Intake of Fluids: 12/11/19 Time Last Intake of Fluids: 23:55 Date Last Intake of Solids: 12/11/19 Time Last Intake of Solids: 23:55 Past Medical History Medical History Kidney stones Sleep apnea no device Past Family History Family History Grandmother (Maternal) Family history of diabetes mellitus Other Heart disease Hypertension No family history of adverse response to anesthesia Past Surgical History Surgical History History of colonoscopy History of esophagogastroduodenoscopy (EGD) History of tonsillectomy History of wisdom tooth extraction Social History Smoking Status: Never smoker Hx Alcohol Use: Yes Alcohol type: wine alcohol intake frequency: holidays/special occasions only Hx Substance Use: No substance use type: does not use Physical Exam Vital Signs Last Vital Signs Temp 36.5 C 12/12/19 10:08 Pulse 60 12/12/19 10:08 Resp 18 12/12/19 10:08 BP 140/97 12/12/19 10:08 Pulse Ox 97 12/12/19 10:08 Testing Laboratory Results 12/11/19 12:35 12/11/19 12:35 Urine Color Yellow 12/11/19 12:35 Urine Appearance Clear (Clear) 12/11/19 12:35 Urine pH 5.5 (4.5-7.5) 12/11/19 12:35 Ur Specific [place] 1.018 (1.000-1.030) 12/11/19 12:35 Urine Protein Negative (Negative) 12/11/19 12:35 Urine Glucose (UA) Negative (Negative) 12/11/19 12:35 Urine Ketones Negative (Negative) 12/11/19 12:35 Urine Nitrite Negative (Negative) 12/11/19 12:35 Ur Leukocyte Esterase Trace (Negative) H 12/11/19 12:35 Urine WBC (Auto) 5-10 /hpf (0-5) H 12/11/19 12:35 Urine RBC (Auto) 0-4 /hpf (0-4) 12/11/19 12:35 U Hyaline Cast (Auto) 1-5 /lpf (0-5) 12/11/19 12:35 U Epithel Cells (Auto) 5-10 /lpf (0-5) H 12/11/19 12:35 Urine Bacteria (Auto) Negative (Negative) 12/11/19 12:35
[2019-12-12] MEDS ORDERED: PROMETHAZINE HCL 12.5 MG in SODIUM CHLORIDE 0.9% 50 ML IV PRN (11:09)
[2019-12-12] MEDS ORDERED: ONDANSETRON INJ 2 MG/ML 2 ML VIAL IV PRN (11:09)
[2019-12-12] MEDS ORDERED: fentaNYL citrate 100 MCG/2 ML VIAL IV PRN (11:09)
[2019-12-12] MEDS ORDERED: ATROPINE SULFATE 0.1 MG/ML 10ML SYR IV PRN (11:09)
[2019-12-12] MEDS ORDERED: ePHEDrine sulfate 50 MG/ML AMP IV PRN (11:09)
[2019-12-12] MEDS ORDERED: METOCLOPRAMIDE HCL INJ 5 MG/ML 2 ML VIAL IV PRN (11:09)
[2019-12-12] MEDS ORDERED: HYDROmorphone INJ 2 MG/ML SYR/VIAL IV PRN (11:09)
[2019-12-12] MEDS ORDERED: KETOROLAC 30 MG/ML VIAL ONE (12:02)
--- NOTE | 2019-12-12 12:11 | Post Operative Brief Note ---
PG Immediate Post Op with CF Date of Surgery December 12, 2019 Pre & Post Diagnosis Operation Date: 12/12/19 09:00 Pre-Op Diagnosis: ureteral calculus, hydronephrosis Post-Op Diagnosis: ureteral calculus, hydronephrosis I identified the patient and participated in the time-out.: Yes Procedure Operation Date: 12/12/19 09:00 Actual Procedures p Cystoscopy, Left Retrograde Pyelogram, Left Stent Placement, Laser Lithotripsy, Stone Extraction; Ureteroscopy - Arun Rubalcava MD Surgeon Arun Rubalcava MD [employer] none Estimated Blood Loss 0 Findings Consistent with Post-Op Diagnosis Specimens Specimen Description: Permanent Specimen A: Left kidney stone
--- NOTE | 2019-12-12 13:08 | Fluoroscopy Report ---
FL retrograde includes kub CLINICAL HISTORY: LEFT RETROGRADE COMPARISON STUDY: CT of the abdomen and pelvis November 27, 2019. KUB December 11, 2019. FLUOROSCOPY TIME: 18.6 seconds. FLUOROSCOPIC IMAGES: 2 FINDINGS: Fluoroscopy was provided for left retrograde exam with ureteral stent insertion. Proximal a spect of stent projects over the left renal pelvis as expected. IMPRESSION: Fluoroscopy provided for left retrograde exam with ureteral stent insertion. ACT 112: Negative or not required by law. Electronically signed by: Moise Savage M.D. 12/12/2019 1:06 PM
--- NOTE | 2019-12-12 13:39 | Anesthesiology Progress Note ---
Date of Service December 12, 2019 Anesthesia Post Procedure Vital Signs Vital Signs: Temp Pulse Pulse Pulse Resp BP BP 12/12/19 13:00 36.5 C 89 16 12/12/19 12:50 69 13 12/12/19 12:40 36.5 C 70 12 12/12/19 12:30 70 12 12/12/19 12:20 82 14 12/12/19 12:13 36.8 C 103 H 21 12/12/19 10:08 36.5 C 60 18 12/12/19 07:40 36.9 C 60 18 144/89 H 12/11/19 23:38 36.7 C 81 16 141/89 H 12/11/19 19:21 36.6 C 65 16 153/93 H 12/11/19 16:55 62 20 146/99 H 12/11/19 15:55 63 18 161/100 H 12/11/19 14:08 62 20 162/103 H BP Pulse Ox 12/12/19 13:00 138/89 98 12/12/19 12:50 144/85 H 96 12/12/19 12:40 142/93 H 96 12/12/19 12:30 144/95 H 100 12/12/19 12:20 155/104 H 100 12/12/19 12:13 155/94 H 100 12/12/19 10:08 140/97 97 12/12/19 07:40 96 12/11/19 23:38 92 12/11/19 19:21 100 12/11/19 16:55 99 12/11/19 15:55 99 12/11/19 14:08 99 Pain Intensity Left Flank: Pain Intensity: 2 Left Abdomen: Pain Intensity: 5 Penis: Pain Intensity: 3 Transfer of Care Handoff Completed per policy Notes Mental Status: alert / awake / arousable and participated in evaluation Patient Amnestic to Procedure: Yes Nausea / Vomiting: adequately controlled Pain: adequately controlled Airway Patency, RR, SpO2: stable & adequate BP & HR: stable & adequate Hydration State: stable & adequate Anesthetic Complications: no major complications apparent
--- NOTE | 2019-12-12 14:49 | Discharge Summary ---
Date of Service December 12, 2019 Admission HPI Per Admitting Provider Dangelo Ellsworth is a 49 year old male with known ureterolithiasis presents to the ER due to renal colic pain that occurred last night but on arrival to ER was 3/10. Pain is in his left groin, has been intermittent occurring multiple times a day lasting for hours (average 4 hours) on each occasion and at it's worse severity 10/10 although he also reports the medication prescribed is effective. No radiation of the pain. No fevers, chills, nausea, vomiting, change in urine. He has been hydrating well since his diagnosis on December 05. He followed up with urology the following day and plan was for outpatient extracorporeal shock wave lithotripsy which I understand from the ER discussion with urology was planned for this Wednesday. However ER discussed with urology who recommend patient given option to come into hospital for possible ESWL tomorrow and the patient wishes to go this route as he has been unable to work with the pain ongoing. Principal Diagnosis none Discharge Exam Constitutional WD/WN, vitals as above Eyes + anicteric sclerae; normal pupil size ENMT external ear and nose normal, oropharynx normal Neck trachea midline, no thyromegaly Respiratory normal respiratory effort, lungs clear to auscultation Cardiovascular RRR, no murmur, no edema Gastrointestinal (Abdomen) normal bowel sounds, soft, nontender, no hepatosplenomegaly Musculoskeletal no cyanosis or clubbing, extremities motor strength 5/5 Skin no rashes, warm and dry Neurologic moves all extremities and awake; no focal motor deficits and not confused Psychiatric A+Ox3, euthymic affect Genitourinary no CVA tenderness Discharge Data Allergies Allergy/AdvReac Type Severity Reaction Status Date / Time No Known Allergies Allergy Unverified 12/11/19 14:31 Consultations 12/11/19 15:55 ED Decision to Admit Stat 12/11/19 17:58 Consult Urology Routine Procedures Performed Operation Date: 12/12/19 09:00 Actual Procedures p Cystoscopy, Left Retrograde Pyelogram, Laser Lithotripsy, Stone Extraction; Ureteroscopy - Arun Rubalcava MD s Left Stent Placement - Arun Rubalcava MD Ordered Studies 12/11/19 12:31 US renal/blad retro comp Stat 12/12/19 14:45 FL retrograde includes kub Routine Hospital Course (1) Ureteral calculi: Patient is s/p cystoscopy, left retrograde pyelogram, left stent placement, laser lithotripsy, stone extraction, ureteroscopy by Dr. Arun Rubalcava urologist. Patient tolerated procedure well. He is eager to go home. Dr. Rubalcava recommended 3 days of Macrobid 100 mg p.o. twice daily and to continue tamsulosin 0.4 mg p.o. nightly. Patient should follow-up at urology clinic on December 21, 2019 at 940 located at [address] [place] [address] Dr. [facility] urology group for the stent removal. Total Time Total Time Spent Total Time Spent (In Minutes): >30 min Discharge Plan Discharge Items Patient Disposition: Home - Self-Care Reason For Visit: NEPHROLITHIASIS Discharge Diagnosis: Nephrolithiasis Condition on Discharge: Good Activity: Per Instructions section Lifting: Gradually increase as tolerated Bathing: No limitations Non-emergency contact: Primary Care Provider and Urologist Call non-emergency contact if: you have any medication questions, your symptoms worsen, your pain is not controlled, your pain is worsening, your pain is unusual for you, your pain is concerning for you, you have a fever and your temperature is above 101 Follow-up/Referrals: PCP,NO [Primary Care Provider] - Diet: Regular Addtl Attending Provider Instructions: Urology follow-up on December 21, 2019 at 9:40 AM. Your stent will be removed at this visit. Address is [address] [place] [address] Dr. [facility] urology group. Your urologist wants you to take Macrobid 100 mg twice daily for 3 days and Flomax 0.4 mg p.o. nightly. Follow-up with PCP within a 7 days and repeat CBC and CMP. Pending Studies at Discharge: No Stand-Alone Forms: My [employer], Smoking Cessation Medications and DC Order Prescriptions: New nitrofurantoin monohyd/m-cryst [Macrobid] 100 mg capsule 100 mg PO BID 5 Days Qty: 10 RF: 0 Continued tramadol 50 mg tablet 50 mg PO BID PRN (Reason: pain) Qty: 10 RF: 0 tamsulosin 0.4 mg Capsule 0.4 mg PO HS Qty: 30 RF: 1 Discharge Orders: Discharge Order (Routine); Ordered 12/12/19 Ordered By: Robert Prado Admission Data Admit Date/Time: 12/11/19 16:28 Attending Provider: Robert Prado Admit Provider: Kali Aquino Primary Care Provider: PCP,NO Other Providers: Kali Aquino ; Arun Rubalcava Coding Level of Care Code D/C Day Management >30 mins Diagnoses Ureteral calculi N20.1
--- NOTE | 2019-12-12 18:58 | Operative Report ---
DATE OF OPERATION: 12/12/2019 PROCEDURE PERFORMED: Left ureteroscopy, laser lithotripsy, stone extraction with stent placement. SURGEON: Arun Rubalcava MD ANESTHESIA: General. INDICATIONS: The patient is a 49-year-old male who presented last week with a stone. He was discharged with the hope of doing lithotripsy, but then canceled this, presented with pain yesterday, now for definitive intervention for his stone with ureteroscopy as the stone had migrated into the distal ureter. DESCRIPTION OF THE PROCEDURE: The patient was taken to the cystoscopy suite where general anesthesia was administered. He was placed in dorsal lithotomy position. He had Venodyne stockings placed and was given ciprofloxacin preoperatively. After he was prepped and draped in the usual sterile fashion, a 22-Scottish cystoscope was passed per urethra. The left ureteral orifice was swollen. The right ureteral orifice was normal. There was no evidence of any other abnormalities in his bladder. Using a 5-Scottish open-ended catheter, a Dual Flex guidewire was passed beyond the stone in the proximal ureter. The open-ended catheter was removed leaving the Dual Flex guidewire in place as a safety wire. The cystoscope was removed and then an Olympus mini ureteroscope semi-rigid was passed into the bladder and into the distal ureter up to the stone. Stone was then fragmented into 4-5 pieces and 4 large fragments were removed. A final pass did not show any other significant sized ureteral fragments. I then placed a 5-Scottish 26 cm stent after I injected some contrast into the proximal ureter to identify the calices. There was a good curl in the proximal ureter. The distal end of the stent had strings on it so the patient hopefully be more comfortable. His bladder was emptied. He was then transferred to the recovery room in stable condition. I attest to the content of the Intraoperative Record and any orders documented therein. Any exception s are noted below.
[2019-12-12] MEDS ORDERED: NITROFURANTOIN MONOHYDRATE 100 MG CAP PO SCH (21:00)
[2019-12-17 06:12] LABS: Calculus Nidus Not Observed; Component 2 DNR; Source KIDNEY
== END 2019-12-12 17:03 | disposition home or self-care (01) ==
LOC: ED 12:07 → 3W 12:07 → SUATTDRO 16:28 → 3W 16:55